=== PATIENT | female | born 1975 | race Caucasian/White ===

== ENCOUNTER 2017-10-15 05:34 | Inpatient (IN) | payer OTHER ==
[~2017-10-15] VITALS: Ht 165.1 cm; Wt 59.4 kg
[2017-10-15] VITALS (7 sets, daily range): BP systolic 91–119; BP diastolic 60–78
[2017-10-15] MEDS ORDERED: NORCO1 E1 ORAL (05:41)
--- NOTE | 2017-10-15 06:03 | Emergency Room Report ---
History of Present Illness General Chief Complaint: Gastrointestinal Bleed Source: Patient Present Illness HPI Is a 42-year-old female who has a history of alcoholism. She is currently in group home for rehabilitation from a severe bursitis of her. She presents with chief complaint of lower GI bleed. She's been having rectal bleeding on and off for a while but more severe in the last day or 2. Large amount of bright red blood per rectum with bowel movement. No trauma. Denies any other complaint. No mass. Allergies: Coded Allergies: No Known Allergies (Unverified , 10/15/17) Patient History Past Medical History: see triage record, old chart reviewed Past Surgical History: other Pertinent Family History: none Social History: Reports: alcohol use - history Now: No Immunizations: other Reviewed Nursing Documentation: PMH: Agreed, PSxH: Agreed Nursing Documentation-PMH Past Medical History: No History, Except For Review of Systems Eye: Denies: eye pain, blurred vision ENT: Denies: ear pain, nose congestion, throat swelling Respiratory: Denies: cough, shortness of breath Cardiovascular: Denies: chest pain, palpitations Gastrointestinal: Denies: abdominal pain, diarrhea, nausea, vomiting Musculoskeletal: Denies: back pain, joint pain Skin: Denies: rash Neurological: Denies: headache, numbness Endocrine: Denies: increased thirst, increased urine Hematologic/Lymphatic: Denies: easy bruising All Other Systems: negative except mentioned in HPI Physical Exam Vital Signs Date Time Temp Pulse Resp B/P (MAP) Pulse Ox O2 Delivery O2 Flow Rate FiO2 10/15/17 05:37 98.2 80 14 84/53 95 Room Air 98.2 vitals with hypotension Sp02 EP Interpretation: reviewed, normal General Appearance: well appearing, no apparent distress, alert Head: normocephalic, atraumatic Eyes: bilateral eye PERRL, bilateral eye EOMI ENT: hearing grossly normal, normal pharynx Neck: full range of motion, supple, no meningismus Respiratory: chest non-tender, lungs clear, normal breath sounds Cardiovascular #1: regular rate, rhythm, no murmur Gastrointestinal: normal bowel sounds, non tender, no mass, no organomegaly, no bruit, non-distended Rectal: normal rectal tone, other - No obvious mass. There is bright red blood Musculoskeletal: back normal, gait/station normal, normal range of motion Psychiatric: mood/affect normal Skin: warm/dry Medical Decision Making Diagnostic Impression: Primary Impression: Rectal bleeding ER Course Patient with rectal bleeding. Most likely an internal hemorrhoid bleeding. I see no external hemorrhoid. Probably worsened because of her thrombocytopenia from alcohol abuse. Will check hemoglobin and give IV fluid. She may need to be admitted for serial H&H and possible colonoscopy. I will sign this patient out to Dr. Burr for labs and final disposition. Last Vital Signs Date Time Temp Pulse Resp B/P (MAP) Pulse Ox O2 Delivery O2 Flow Rate FiO2 10/15/17 05:37 98.2 80 14 84/53 95 Room Air 98.2 Status: improved Disposition: ADMITTED INPATIENT Condition: Serious PARIS DE LA VEGA M.D. Oct 15, 2017 06:02
[2017-10-15 06:17] LABS: HEMOGLOBIN 9.1 G/DL (12.0-16.0); MEAN CORPUSCULAR VOLUME 101 FL (80-99); RED BLOOD COUNT 2.78 M/UL (4.20-5.40); RED CELL DISTRIBUTION WIDTH 17.2 % (11.6-14.8); WHITE BLOOD COUNT 4.8 K/UL (4.8-10.8)
[2017-10-15 06:18] LABS: BILIRUBIN, URINE NEGATIVE (NEGATIVE); GLUCOSE, URINE (UA) NEGATIVE (NEGATIVE); KETONES,URINE NEGATIVE (NEGATIVE); NITRITE,URINE NEGATIVE (NEGATIVE); PH,URINE 7 (4.5-8.0); PROTEIN,URINE 1+ (NEGATIVE); UROBILINOGEN,URINE 1 MG/DL (0.0-1.0)
[2017-10-15 06:18] LABS: PLATELET COUNT 66 K/UL (150-450)
[2017-10-15 06:31] LABS: ANION GAP 7 mmol/L (5-15); BLOOD UREA NITROGEN 6 mg/dL (7-18); CALCIUM 9.6 MG/DL (8.5-10.1); CARBON DIOXIDE 29 MMOL/L (21-32); CHLORIDE 106 MMOL/L (98-107); CREATININE 0.6 MG/DL (0.55-1.30); POTASSIUM 3.5 MMOL/L (3.5-5.1); SODIUM 142 MMOL/L (136-145)
[2017-10-15 06:34] LABS: INR 1.4 (0.9-1.1)
[2017-10-15 06:36] LABS: COLOR,URINE YELLOW
[2017-10-15 06:37] LABS: APPEARANCE,URINE SLIGHTLY CLOUDY; LEUKOCYTE ESTERASE ,URINE 2+ (NEGATIVE)
[2017-10-15] MEDS ORDERED: FERROUS SULFAT325 MG ORAL (07:49)
[2017-10-15] MEDS ORDERED: FOLIC ACID1 MG ORAL (07:49)
[2017-10-15] MEDS ORDERED: MULTIVITAMINS1 EAC2 ORAL (07:49)
[2017-10-15] MEDS ORDERED: ASCORBIC ACID500 MG ORAL (07:49)
[2017-10-15] MEDS ORDERED: NORCO 10-325 T1 EACH ORAL (07:49)
[2017-10-15] MEDS ORDERED: LACTULOSE20 GM/301 ORAL (07:49)
[2017-10-15] MEDS ORDERED: VITAMIN B-1100 MG ORAL (07:49)
[2017-10-15] MEDS ORDERED: PREPARATION H26 GM TP (07:49)
[2017-10-15] MEDS ORDERED: ACETAMINOPHEN325 M1 ORAL (07:49)
[2017-10-15] MEDS ORDERED: SERTRALINE HCL25 MG ORAL (07:49)
[2017-10-15] MEDS ORDERED: DOCUSATE SODIU250 MG ORAL (07:49)
[2017-10-15] MEDS ORDERED: [UNRECOGNIZED DRUG - OTHER] TOPIC (07:49)
[2017-10-15] MEDS ORDERED: BISACODYL5 MG ORAL (07:49)
[2017-10-15] MEDS ORDERED: cefTRIAXone 1 GM in NS 55 ML IVPB ONE (09:30)
[2017-10-15] MEDS ORDERED: HYDROcodone/Acetamin 10/325 tab ORAL PRN (15:00)
[2017-10-15] MEDS ORDERED: Bisacodyl EC 5mg tab ORAL ONE (16:00)
[2017-10-15] MEDS ORDERED: Fleet's Enema 133ml RECTAL ONE (16:00)
[2017-10-15] MEDS ORDERED: Nulytely 4L ORAL ONE (16:30)
[2017-10-15] MEDS: Lactulose 20gm/30ml UDC ORAL SCH (18:05)
[2017-10-15] MEDS: Docusate 250mg cap ORAL SCH (18:05)
[2017-10-15 18:26] LABS: % IRON SATURATION 18 % (15-50); FERRITIN 58 NG/ML (8-388); IRON 36 ug/dL (50-175); LACTATE DEHYDROGENASE 150 U/L (81-234); TOTAL IRON BINDING CAPACITY 205 ug/dL (250-450)
[2017-10-15] MEDS: HYDROcodone/Acetamin 10/325 tab ORAL PRN (18:57)
--- NOTE | 2017-10-15 20:16 | Consultation ---
DATE OF CONSULTATION: 10/15/2017 INFECTIOUS DISEASE CONSULTATION PRIMARY ATTENDING PHYSICIAN: Ernie Giron M.D. REASON FOR CONSULT: Pyuria and UTI. HISTORY OF PRESENT ILLNESS: The patient is a 42-year-old female admitted today [facility] because of lower GI bleeding, passing blood and blood clots from rectum for two days. No fever. No chills. No other symptoms. PAST MEDICAL HISTORY: Significant for alcoholism. The patient's states that couple of mixes. Did not take any alcohol for couple of weeks. Alcoholic liver disease, anemia and thrombocytopenia, has hip bursitis. MEDICATIONS: Getting get a dose of ceftriaxone in the ER and getting sodium chloride. Prior to admission, taking nonsteroidal anti-inflammatory drugs. SOCIAL HISTORY: alf resident. Denies drug abuse. Denies smoking. Until a couple of weeks ago, drank three drinks every other day of vodka. Single, has no child. REVIEW OF SYSTEMS: No fever. No chills. No headache. Some generalized weakness, but no shortness of breath. No chest pain. She has some musculoskeletal pain. No problem passing urine. No coughing. PHYSICAL EXAMINATION: VITAL SIGNS: Temperature 98.4 degrees, pulse 80, and blood pressure 94/65. GENERAL APPEARANCE: No acute distress. HEAD AND NECK: No oral lesion. HEART: Regular. Normal rate. LUNGS: Clear. ABDOMEN: Soft, nondistended. No organomegaly. EXTREMITY: She have no edema. LABORATORY AND DIAGNOSTIC DATA: WBC 4.8, hemoglobin 9.1, hematocrit 28 and platelet 66. Sodium 142, potassium 3.5, chloride 106, bicarbonate 29, BUN 6 and creatinine 0.6. Liver function tests in senior care that showed bilirubin of 2.5. UA showed leukocyte esterase 2+, WBCs 5 to 10, bacteria moderate and coarse granular casts. IMPRESSION: Pyuria. We will try to rule out urinary tract infection. The patient has rectal bleeding, has anemia, thrombocytopenia and alcoholic liver disease. RECOMMENDATION: We will continue ceftriaxone. The patient will be evaluated with GI specialist. At the end of my exam, I thank Dr. Giron for involving me in the care of this patient. Jf Alvarez M.D. DR: CLAUDIA JOB#: [id number] CC:
[2017-10-16] VITALS (11 sets, daily range): BP systolic 90–121; BP diastolic 53–85
[2017-10-16] MEDS: HYDROcodone/Acetamin 10/325 tab ORAL PRN ×5 (00:57→22:22)
--- NOTE | 2017-10-16 05:17 | History and Physical Report ---
DATE OF ADMISSION: 10/15/2017 NOTE: POOR AUDIO HISTORY OF PRESENT ILLNESS: The patient comes here because of rectal bleeding. She is admitted to telemetry for UTI as well as rectal bleeding. The patient has been having bleeding from the rectum and never had colonoscopy in the past. She is here for recheck with workup as well. The patient is having rectal bleeding for the past month, however, for the last two days has been much heavier with clots. The patient also had acute onset of left hip bursitis for which she [facility]. The patient also has history of lupus. Denies nausea, vomiting, or diarrhea. Denies vomiting. Denies constipation. Denies shortness of breath. Denies cough. PAST MEDICAL HISTORY: Significant for lupus, left hip bursitis, constipation in the past, iron-deficiency anemia in the past, and depression in the past. PAST SURGICAL HISTORY: Left wrist surgery. MEDICATIONS: She used to take in the past multivitamin, thiamine, Colace, and folic acid. ALLERGIES: Erythromycin. SOCIAL HISTORY: Denies history of smoking, alcohol, or illicit drugs. FAMILY HISTORY: Noncontributory. REVIEW OF SYSTEMS: HEENT: Denies headaches. RESPIRATORY: Denies shortness of breath. Denies cough. CARDIOVASCULAR: Denies chest pain. No orthopnea. GASTROINTESTINAL: Denies nausea, vomiting, or diarrhea. Does have occasional constipation with rectal bleeding for the past month and has been much worse in the past two days with heavy clots. EXTREMITIES: Denies lower extremity pain. CENTRAL NERVOUS SYSTEM: No change in vision or speech pattern. PHYSICAL EXAMINATION: VITAL SIGNS: Temperature is 98.2 degrees, pulse is 80, and blood pressure 84/73. HEENT: PERRLA. NECK: Supple. No lymphadenopathy. CHEST: Clear to auscultation. GASTROINTESTINAL: Soft, nontender, and nondistended. No organomegaly. EXTREMITIES: No edema. Moves all four extremities. Does have decreased range of motion in the left hip due to bursitis, however, it is getting better and is able to move . Otherwise, edema in the lower extremity. Reflexes equal on both sides. NEUROLOGIC: Cranial nerves II through XII intact. LABORATORY DATA: WBC of 4.81, hemoglobin 9.1, and platelets 66,000. Sodium 140, potassium 3.5, BUN of 6, and creatinine 0.6. ASSESSMENT AND PLAN: 1. Rectal bleeding. 2. Anemia. 3. Hypokalemia. I have asked Dr. Rogers, Dr. Cunningham, and Dr. Melgar as well as Dr. Bustamante for the above-mentioned diagnoses and treatment as well as for the urinary tract infection treatment of the urinary tract infection. Ernie Giron M.D. DR: Amando JOB#: [id number] CC:
[2017-10-16] MEDS ORDERED: Fleet's Enema 133ml RECTAL ONE (06:00)
--- NOTE | 2017-10-16 07:01 | Consultation ---
DATE OF CONSULTATION: 10/15/2017 NOTE: POOR AUDIO HEMATOLOGY/ONCOLOGY CONSULTATION CONSULTING PHYSICIAN: Damien Rogers M.D. REQUESTING PHYSICIAN: Ernie Giron M.D. REASON FOR CONSULTATION: Evaluation of thrombocytopenia and anemia. IDENTIFYING DATA: Dear Dr. Giron, The patient is a pleasant 42-year-old female with past medical history significant for correction resident, severe bursitis, history of alcoholism, and history of rectal bleeding in the past, at this time presents with bright red blood per rectum. No masses noted. Denies any fevers or chills. history of anemia. Hematology Service was consulted as well as GI team. PAST MEDICAL HISTORY: As noted above. PAST SURGICAL HISTORY: None noted. SOCIAL HISTORY: Alcohol abuse drug use. No tobacco. FAMILY HISTORY: Noncontributory. REVIEW OF SYSTEMS: CONSTITUTIONAL: No fevers, chills, or night sweats. SKIN: No rashes, bumps, or itching. HEENT: No headache, hearing or vision changes. BREASTS: No masses noted. GASTROINTESTINAL: No nausea, vomiting, or diarrhea. GENITOURINARY: No dysuria, frequency, or urgency. MUSCULOSKELETAL: No joint swelling, muscle pain, or trauma. PHYSICAL EXAMINATION: VITAL SIGNS: Reviewed. GENERAL: No distress. PULMONARY: Decreased breath sounds. CARDIOVASCULAR: Regular rate. No S3 or S4. ABDOMEN: Soft, nontender, and nondistended. EXTREMITIES: No cyanosis, swelling, or edema. LABORATORY AND DIAGNOSTIC DATA: WBC 4.8, hemoglobin 9.1, hematocrit 28, and platelet count 66,000. INR 1.1. imaging reviewed. No imaging noted. ASSESSMENT AND RECOMMENDATIONS: 1. Thrombocytopenia, likely secondary to history of alcohol abuse, potential cirrhosis and potential splenomegaly. Obtain ultrasound of the abdomen, human immunodeficiency virus, hepatitis. 2. Anemia due to gastrointestinal bleed. GI evaluation by Dr. Cunningham. 3. Macrocytosis, potentially secondary to alcohol abuse. Continue to closely monitor. 4. 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 5. Cirrhosis of the liver. ____ vitamin K . 6. Gastrointestinal bleed. Evaluation by GI Service. EGD and colonoscopy as per GI Service. 7. Alcoholism. Recommend the patient to stop drinking. 8. , likely due to anemia. I appreciate the consultation. Damien Rogers M.D. DR: ATA JOB#: [id number] CC:
[2017-10-16 08:36] LABS: HEMATOCRIT 24.8 % (37.0-47.0); HEMOGLOBIN 7.8 G/DL (12.0-16.0); MEAN CORPUSCULAR VOLUME 101 FL (80-99); PLATELET COUNT 54 K/UL (150-450); RED BLOOD COUNT 2.46 M/UL (4.20-5.40); RED CELL DISTRIBUTION WIDTH 17.4 % (11.6-14.8); WHITE BLOOD COUNT 3.3 K/UL (4.8-10.8)
--- NOTE | 2017-10-16 08:41 | Diagnostic Imaging Report ---
Indication: Abdominal pain Technique: Arias-scale and duplex images of the upper abdomen were obtained Comparison: none Findings: Gallbladder demonstrates gallstones. The wall is thickened. And there is some pericholecystic fluid Sonographic Gale's sign is negative. Common bile duct measures 3 mm in diameter. No intrahepatic biliary ductal dilatation. Liver demonstrates normal echogenicity, no focal abnormality. Portal vein and hepatic veins are patent. Pancreas is unremarkable. Spleen is unremarkable. Left kidney measures 12.1 cm in length. Right kidney measures 13.5 cm length. Both kidneys demonstrate normal echogenicity. There is no hydronephrosis. Calculi are demonstrated in the right renal lower pole, measuring up to 7 mm diameter. Non-aneurysmal abdominal aorta . Impression: Cholelithiasis. Gallbladder wall thickening and pericholecystic fluid is concerning for acute cholecystitis. Consider nuclear medicine hepatobiliary scanning for further evaluation if clinically indicated Negative for dilated ducts Nonobstructive right lower pole renal calculi
--- NOTE | 2017-10-16 08:43 | Anethesia Preoperative Eval ---
Anesthesia Pre-op PMH/ROS General Date of Evaluation: Oct 16, 2017 Time of Evaluation: 08:38 Anesthesiologist: dawit ASA Score: ASA 3 Mallampati Score Class I : Soft palate, uvula, fauces, pillars visible Class II: Soft palate, uvula, fauces visible Class III: Soft palate, base of uvula visible Class IV: Only hard plate visible Mallampati Classification: Class II Surgeon: lucio Diagnosis: gi bleed Surgical Procedure: egd/colonoscopy Anesthesia History: none Social History: smoking - nonsmoker, alcohol use Family History: no anesthesia problems Allergies: Coded Allergies: No Known Allergies (Unverified , 10/15/17) Medications: see eMAR Past Medical History Neurologic/Psychiatric: Reports: depression/anxiety HEENT: Reports: other - epistaxis Anesthesia Pre-op Phys. Exam Physician Exam Last Vital Signs Date Time Temp Pulse Resp B/P (MAP) Pulse Ox O2 Delivery O2 Flow Rate FiO2 10/16/17 06:20 98.2 10/16/17 04:00 82 19 112/85 95 Room Air Constitutional: NAD Neurologic: CN 2-12 intact Cardiovascular: RRR Respiratory: CTA Gastrointestinal: S/NT/ND Airway Exam Mallampati Score: Class II MO: full Neck: supple TMD: 2fb ROM: full Teeth: intact Anesthesia Pre-op A/P Labs Hematology Test 10/15/17 16:55 10/16/17 08:20 Reticulocyte Count 1.6 % (0.0-2.0) White Blood Count 3.3 K/UL (4.8-10.8) L Red Blood Count 2.46 M/UL (4.20-5.40) L Hemoglobin 7.8 G/DL (12.0-16.0) L Hematocrit 24.8 % (37.0-47.0) L Mean Corpuscular Volume 101 FL (80-99) H Mean Corpuscular Hemoglobin 31.8 PG (27.0-31.0) H Mean Corpuscular Hemoglobin Concent 31.5 G/DL (32.0-36.0) L Red Cell Distribution Width 17.4 % (11.6-14.8) H Platelet Count 54 K/UL (150-450) L Mean Platelet Volume 7.7 FL (6.5-10.1) Neutrophils (%) (Auto) % (45.0-75.0) Lymphocytes (%) (Auto) % (20.0-45.0) Monocytes (%) (Auto) % (1.0-10.0) Eosinophils (%) (Auto) % (0.0-3.0) Basophils (%) (Auto) % (0.0-2.0) Neutrophils % (Manual) Pending Lymphocytes % (Manual) Pending Platelet Estimate Pending Platelet Morphology Pending Coagulation Test 10/15/17 16:55 PTT Mixing Study Pending APTT Patient/Control Mix Pending Mix PTT Incubation Time Pending Mix PTT Normal/Saline 1:1 Immediate Pending Thrombin Time Normal Plasma Pending Fibrinogen 215 mg/dL (200-400) Chemistry Test 10/15/17 16:55 Iron Level 36 ug/dL (50-175) L Total Iron Binding Capacity 205 ug/dL (250-450) L Percent Iron Saturation 18 % (15-50) Unsaturated Iron Binding 169 ug/dL (112-346) Soluble Transferrin Receptor Pending Ferritin 58 NG/ML (8-388) Lactate Dehydrogenase 150 U/L (81-234) Methylmalonic Acid Pending Folate 17.4 NG/ML (8.6-58.9) Thyroid Stimulating Hormone (TSH) 2.525 uiU/mL (0.358-3.740) Risk Assessment & Plan Assessment: asa3 Plan: mac Status Change Before Surgery: No Pre-Antibiotics Drug: WILBERT Harrington Oct 16, 2017 08:43
[2017-10-16] MEDS ORDERED: DiphenhydrAMINE 50mg/ml Inj IVP PRN (09:15)
[2017-10-16] MEDS ORDERED: fentaNYL 100 mcg/2 mL IV PRN (09:15)
[2017-10-16] MEDS ORDERED: Midazolam 2mg/2ml Inj IVP PRN (09:15)
[2017-10-16] MEDS ORDERED: Atropine Inj 1mg/10ml Syr IV PRN (09:15)
[2017-10-16] MEDS ORDERED: Midazolam 2mg/2ml Inj ONE (10:00)
[2017-10-16] MEDS ORDERED: fentaNYL 100 mcg/2 mL IV ONE (10:00)
--- NOTE | 2017-10-16 10:02 | Pre-Procedure Note/Attestation ---
Pre-Procedure Note/Attestation Complete Prior to Procedure Planned Procedure: not applicable Procedure Narrative: Endoscopy and colonoscopy possible banding Attestation I attest that I discussed the nature of the procedure; its benefits; risks and complications; and alternatives (and the risks and benefits of such alternatives ), prior to the procedure, with the patient (or the patient's legal hvac sales representative). I attest that, if there was a reasonable possibility of needing a blood transfusion, the patient (or the patient's legal hvac sales representative) was given the [facility] standardized written summary, pursuant to the Yadiel Daniel Blood Safety Act ([place] Health and Safety Code # 1645, as amended). I attest that I re-evaluated the patient just prior to the surgery and that there has been no change in the patient's H&P, except as documented below: YVETTE MO Oct 16, 2017 10:02
--- NOTE | 2017-10-16 10:02 | General Progress Note ---
Assessment/Plan Assessment/Plan Dictated Subjective Allergies: Coded Allergies: No Known Allergies (Unverified , 10/15/17) Objective Last 24 Hour Vital Signs Date Time Temp Pulse Resp B/P (MAP) Pulse Ox O2 Delivery O2 Flow Rate FiO2 10/16/17 06:20 98.2 10/16/17 04:00 97.7 82 19 112/85 95 Room Air 97.7 10/16/17 04:00 80 10/16/17 00:00 98.2 76 18 109/56 96 Room Air 98.2 10/16/17 00:00 82 10/15/17 20:00 98.2 74 18 119/78 99 Room Air 98.2 10/15/17 20:00 79 10/15/17 16:00 66 10/15/17 16:00 97.9 74 18 102/68 100 Room Air 97.9 10/15/17 12:00 100 10/15/17 12:00 97.9 101 18 97/68 100 Room Air 97.9 10/15/17 11:19 98.4 80 16 94/65 100 Room Air 10/15/17 11:15 77 17 94/65 96 Room Air 78 Intake and Output 10/15/17 10/16/17 19:00 07:00 Intake Total 2175 ml Output Total 800 ml Balance 2175 ml -800 ml Intake Oral 120 ml IV Total 2055 ml Output Urine Total 800 ml # Voids 3 # Bowel Movements 6 Laboratory Tests 10/15/17 16:55: Reticulocyte Count 1.6, PTT Mixing Study [Pending], APTT Patient/Control Mix [ Pending], Mix PTT Incubation Time [Pending], Mix PTT Normal/Saline 1:1 Immediate [Pending], Thrombin Time Normal Plasma [Pending], Fibrinogen 215, Iron Level 36L, Total Iron Binding Capacity 205L, Percent Iron Saturation 18, Unsaturated Iron Binding 169, Soluble Transferrin Receptor [Pending], Ferritin 58, Lactate Dehydrogenase 150, Methylmalonic Acid [Pending], Folate 17.4, Thyroid Stimulating Hormone (TSH) 2.525, Hepatitis A IgM Antibody [Pending], Hepatitis B Surface Antigen [Pending], Hepatitis B Core IgM Antibody [Pending], Hepatitis C Antibody [Pending], HIV (1&2) Antibody Rapid Negative 10/15/17 17:34: Stool Occult Blood [Pending] 10/16/17 08:20: White Blood Count 3.3L, Red Blood Count 2.46L, Hemoglobin 7.8L, Hematocrit 24.8L , Mean Corpuscular Volume 101H, Mean Corpuscular Hemoglobin 31.8H, Mean Corpuscular Hemoglobin Concent 31.5L, Red Cell Distribution Width 17.4H, Platelet Count 54L, Mean Platelet Volume 7.7, Neutrophils (%) (Auto) , Lymphocytes (%) (Auto) , Monocytes (%) (Auto) , Eosinophils (%) (Auto) , Basophils (%) (Auto) , Neutrophils % (Manual) [Pending], Lymphocytes % (Manual) [Pending], Platelet Estimate [Pending], Platelet Morphology [Pending] Height (Feet): 5 Height (Inches): 5.00 Weight (Pounds): 131 ROCKYVETTE SHAH Oct 16, 2017 10:02
[2017-10-16] MEDS ORDERED: NS 500ML IV ONE (10:10)
--- NOTE | 2017-10-16 11:03 | Endoscopy Procedure Note ---
Endoscopy Procedure Note General Indication for Procedure: GIB Procedures Performed: EGD, colonoscopy Operative Findings/Diagnosis: HHx9, GERD/ulcer, Rhoid, normal TI x 10, no blood Specimen: none Pt Tolerated Procedure Well: Yes Estimated Blood Loss: none Anesthesia Anesthesiologist: Daquan Toro Anesthesia: MAC Medications Medication Given: see anesthesia record Inserted Devices Implant(s) used?: No Quality Quality of Bowel Preparation: Excellent GI Core Measures 50 yrs or older w/o bx or poly: Not Applicable 10yrs. F/U not recommended: Not Applicable If not recommended, why?: YVETTE MO Oct 16, 2017 11:03
--- NOTE | 2017-10-16 11:08 | Brief Operative Note ---
Immediate Post Operative Note Operative Note Chief Complaint: GIB Pre-op Diagnosis: Gib Procedure: EGD/Colon Post-op Diagnosis: HHx9, GERD/ulcer, Rhoid, normal TI x 10, no blood Surgeon: lucio Anesthesiologist: katlin christensen Anesthesia: MAC Specimen: none Complications: none Condition: stable Fluids: recorded Estimated Blood Loss: none Drains: none Implant(s) used?: No YVETTE MO Oct 16, 2017 11:08
--- NOTE | 2017-10-16 11:22 | Immediate Post-Op Evaluation ---
Immediate Post-Op Evalulation Immediate Post-Op Evalulation Procedure: egd/colonoscopy Date of Evaluation: Oct 16, 2017 Time of Evaluation: 11:06 IV Fluids: 325ml 0.9ns Blood Products: none Estimated Blood Loss: negligible Blood Pressure Systolic: 94 Blood Pressure Diastolic: 61 Pulse Rate: 71 Respiratory Rate: 18 O2 Sat by Pulse Oximetry: 100 Temperature (Fahrenheit): 97.5 Pain Score (1-10): 0 Nausea: No Vomiting: No Complications none Patient Status: awake, reacts, patent Hydration Status: adequate Drug: WILBERT Harrington Oct 16, 2017 11:22
--- NOTE | 2017-10-16 11:23 | 48 Hour Post Anesthesia Eval ---
Post Anesthesia Evaluation Procedure: egd/colonoscopy Date of Evaluation: Oct 16, 2017 Time of Evaluation: 11:08 Blood Pressure Systolic: 98 0: 58 Pulse Rate: 82 Respiratory Rate: 18 Temperature (Fahrenheit): 97.5 O2 Sat by Pulse Oximetry: 100 Airway: patent Nausea: No Vomiting: No Hydration Status: adequate Cardiopulmonary Status: stable Mental Status/LOC: patient returned to baseline Post-Anesthesia Complications: none Follow-up care needed: N/A WILBERT GUZMAN Oct 16, 2017 11:23
[2017-10-16] MEDS ORDERED: Phytonadione 10 mg/mL 1ml amp SUBQ ONE (12:00)
[2017-10-16] MEDS: cefTRIAXone 1 GM in NS 55 ML IVPB SCH (12:01)
[2017-10-16] MEDS: Lactulose 20gm/30ml UDC ORAL SCH ×3 (12:02→17:15)
[2017-10-16] MEDS: Docusate 250mg cap ORAL SCH ×2 (12:02→17:15)
[2017-10-16] MEDS: Bisacodyl EC 5mg tab ORAL SCH (12:03)
[2017-10-16] MEDS: Ascorbic Acid 500mg tab ORAL SCH (12:04)
[2017-10-16] MEDS: Sertraline 50mg tab ORAL SCH (12:04)
[2017-10-16] MEDS: Thiamine 100mg tab ORAL SCH (12:04)
[2017-10-16 12:14] LABS: HEMATOCRIT 24.5 % (37.0-47.0); HEMOGLOBIN 7.7 G/DL (12.0-16.0); MEAN CORPUSCULAR VOLUME 103 FL (80-99); PLATELET COUNT 49 K/UL (150-450); RED BLOOD COUNT 2.39 M/UL (4.20-5.40); RED CELL DISTRIBUTION WIDTH 17.4 % (11.6-14.8); WHITE BLOOD COUNT 2.8 K/UL (4.8-10.8)
[2017-10-16 12:23] LABS: ANION GAP 8 mmol/L (5-15); BLOOD UREA NITROGEN 6 mg/dL (7-18); CALCIUM 8.6 MG/DL (8.5-10.1); CARBON DIOXIDE 23 MMOL/L (21-32); CHLORIDE 113 MMOL/L (98-107); CREATININE 0.5 MG/DL (0.55-1.30); POTASSIUM 3.4 MMOL/L (3.5-5.1); SODIUM 144 MMOL/L (136-145)
[2017-10-16 12:33] LABS: ALANINE AMINOTRANSFERASE 14 U/L (12-78); ALBUMIN 2.1 G/DL (3.4-5.0); ALBUMIN/GLOBULIN RATIO 0.6 (1.0-2.7); ALKALINE PHOSPHATASE 120 U/L (46-116); ASPARTATE AMINO TRANSFERASE 42 U/L (15-37); BILIRUBIN,TOTAL 2.7 MG/DL (0.2-1.0)
[2017-10-16 12:36] LABS: BILIRUBIN,DIRECT 1.5 MG/DL (0.0-0.3)
--- NOTE | 2017-10-16 13:16 | Consultation ---
History of Present Illness General Date patient seen: Oct 16, 2017 Chief Complaint: Gastrointestinal Bleed Reason for Consultation: GI bleed Present Illness HPI 42 year old female with multiple medical comorbidities presented with bright red blood and blood clots per rectum. Was noted to have few BM's with bloody contents and was brought to [facility] [place] for evaluation. Upon admission noted to be anemic but fortunately no active bleeding on admission. Patient states that she has episodes of blood with BM's intermittently for the past few months but has not seen medical attention for it as it resolves on its own. no n/v/f/c. Surgery called to evaluate patient for GI bleeding. chart reviewed, patient examined, orders reviewed. Allergies: Coded Allergies: No Known Allergies (Unverified , 10/15/17) Medication History Scheduled Acetaminophen* (Acetaminophen 325MG Tablet*), 325 MG ORAL Q4H, (Reported) Ascorbic Acid* (Ascorbic Acid*), 500 MG ORAL DAILY, (Reported) Bisacodyl* (Dulcolax*), 5 MG ORAL DAILY, (Reported) Docusate Sodium* (Docusate Sodium*), 250 MG ORAL TWICE A DAY, (Reported) Ferrous Sulfate* (Ferrous Sulfate*), 325 MG ORAL DAILY, (Reported) Folic Acid* (Folic Acid*), 1 MG ORAL DAILY, (Reported) Multivitamins* (Multivitamins*), 1 TAB ORAL DAILY, (Reported) Sertraline Hcl* (Sertraline Hcl*), 25 MG ORAL DAILY, (Reported) Thiamine Hcl* (Vitamin B-1*), 100 MG ORAL DAILY, (Reported) Scheduled PRN Acetaminophen/Hydrocodone ([place] 7.5-325 Tablet), 1 TAB ORAL Q4H PRN for For Pain, (Reported) Hydrocodone Bit/Acetaminophen 10-325* ([place] 10-325*), 1 TAB ORAL Q4H PRN for For Pain, (Reported) Miscellaneous Medications Hydrocortisone (Preparation H), 26 GM TP, (Reported) Lactulose (Lactulose*), 30 ML ORAL, (Reported) Lidocaine HCl (Lidocaine HCl), 1 APPLIC TOPIC, (Reported) Patient History History Provided By: Patient, Medical Record, PMD Healthcare decision maker Resuscitation status Full Code Advanced Directive on File Past Medical/Surgical History Past Medical/Surgical History: (1) Rectal bleeding Review of Systems Constitutional: Denies: no symptoms, see HPI, chills, sweats, fever, malaise, weakness, other Eye: Denies: no symptoms, see HPI, eye pain, blurred vision, tearing, double vision, nose pain, nose congestion, acuity changes, discharge, other ENT: Denies: no symptoms, see HPI, ear pain, ear discharge, nose pain, nose congestion, throat pain, throat swelling, mouth pain, hearing loss, nasal discharge, other Respiratory: Denies: no symptoms, see HPI, cough, orthopnea, shortness of breath, stridor, wheezing, BRAY, sputum, other Cardiovascular: Denies: no symptoms, see HPI, chest pain, edema, palpitations, syncope, PND, other Gastrointestinal: Denies: no symptoms, see HPI, abdominal pain, constipation, diarrhea, nausea, vomiting, melena, hematemesis, other Genitourinary: Denies: no symptoms, see HPI, discharge, dysuria, frequency, hematuria, pain, retention, incontinence, urgency, vag bleed/dc, other Musculoskeletal: Denies: no symptoms, see HPI, back pain, gout, joint pain, joint swelling, muscle pain, muscle stiffness, other Skin: Denies: no symptoms, see HPI, rash, change in color, change in hair/nails , dryness, lesions, other Psychiatric: Denies: no symptoms, see HPI, prior hx, anxiety, depressed feelings, emotional problems, SI, HI, hallucinations, other Neurological: Denies: no symptoms, see HPI, headache, numbness, paresthesia, seizure, tingling, tremors, focal weakness, syncope, dizziness, other Endocrine: Denies: no symptoms, see HPI, excessive sweating, flushing, intolerance to temperature, increased thirst, increased urine, unexplained weight loss, other Hematologic/Lymphatic: Denies: no symptoms, see HPI, anemia, blood clots, easy bleeding, easy bruising, swollen glands, diathesis, other Physical Exam General Appearance: no apparent distress, alert Lines, tubes and drains: peripheral HEENT: normocephalic, mucous membranes moist Neck: normal inspection Respiratory/Chest: lungs clear, normal breath sounds, no respiratory distress, no accessory muscle use Cardiovascular/Chest: normal peripheral pulses, normal rate Abdomen: normal bowel sounds, soft, no organomegaly, no mass Genitourinary/Rectal: other - just had colonoscopy. defer rectal exam for now Extremities: non-tender Neurologic: alert, responsive Last 24 Hour Vital Signs Date Time Temp Pulse Resp B/P (MAP) Pulse Ox O2 Delivery O2 Flow Rate FiO2 10/16/17 11:35 79 17 101/59 100 Room Air 10/16/17 11:23 207.5 82 18 100 10/16/17 11:22 207.5 71 18 100 10/16/17 11:20 97.9 83 15 99/53 100 Room Air 97.9 10/16/17 11:05 82 16 95/58 100 Room Air 10/16/17 11:00 80 14 90/55 100 Room Air 10/16/17 10:54 97.5 71 18 94/61 100 Nasal Cannula 1.0 97.5 10/16/17 08:00 98.6 72 18 102/55 97 Room Air 98.6 10/16/17 06:20 98.2 10/16/17 04:00 97.7 82 19 112/85 95 Room Air 97.7 10/16/17 04:00 80 10/16/17 00:00 98.2 76 18 109/56 96 Room Air 98.2 10/16/17 00:00 82 10/15/17 20:00 98.2 74 18 119/78 99 Room Air 98.2 10/15/17 20:00 79 10/15/17 16:00 66 10/15/17 16:00 97.9 74 18 102/68 100 Room Air 97.9 Intake and Output 10/15/17 10/16/17 19:00 07:00 Intake Total 2175 ml Output Total 800 ml Balance 2175 ml -800 ml Intake Oral 120 ml IV Total 2055 ml Output Urine Total 800 ml # Voids 3 # Bowel Movements 6 Laboratory Tests Test 10/15/17 16:55 10/15/17 17:34 10/16/17 08:20 10/16/17 11:45 Reticulocyte Count 1.6 % (0.0-2.0) PTT Mixing Study Pending APTT Patient/Control Mix Pending Mix PTT Incubation Time Pending Mix PTT Normal/Saline 1:1 Immediate Pending Thrombin Time Normal Plasma Pending Fibrinogen 215 mg/dL (200-400) Iron Level 36 ug/dL (50-175) L Total Iron Binding Capacity 205 ug/dL (250-450) L Percent Iron Saturation 18 % (15-50) Unsaturated Iron Binding 169 ug/dL (112-346) Soluble Transferrin Receptor Pending Ferritin 58 NG/ML (8-388) Lactate Dehydrogenase 150 U/L (81-234) Methylmalonic Acid Pending Folate 17.4 NG/ML (8.6-58.9) Thyroid Stimulating Hormone (TSH) 2.525 uiU/mL (0.358-3.740) Hepatitis A IgM Antibody Negative (Negative) Hepatitis B Surface Antigen Negative (Negative) Hepatitis B Core IgM Antibody Negative (Negative) Hepatitis C Antibody 0.1 s/co ratio (0.0-0.9) HIV (1&2) Antibody Rapid Negative (NEGATIVE) Stool Occult Blood Positive (NEGATIVE) White Blood Count 3.3 K/UL (4.8-10.8) L 2.8 K/UL (4.8-10.8) L Red Blood Count 2.46 M/UL (4.20-5.40) L 2.39 M/UL (4.20-5.40) L Hemoglobin 7.8 G/DL (12.0-16.0) L 7.7 G/DL (12.0-16.0) L Hematocrit 24.8 % (37.0-47.0) L 24.5 % (37.0-47.0) L Mean Corpuscular Volume 101 FL (80-99) H 103 FL (80-99) H Mean Corpuscular Hemoglobin 31.8 PG (27.0-31.0) H 32.2 PG (27.0-31.0) H Mean Corpuscular Hemoglobin Concent 31.5 G/DL (32.0-36.0) L 31.4 G/DL (32.0-36.0) L Red Cell Distribution Width 17.4 % (11.6-14.8) H 17.4 % (11.6-14.8) H Platelet Count 54 K/UL (150-450) L 49 K/UL (150-450) L Mean Platelet Volume 7.7 FL (6.5-10.1) 8.3 FL (6.5-10.1) Neutrophils (%) (Auto) % (45.0-75.0) % (45.0-75.0) Lymphocytes (%) (Auto) % (20.0-45.0) % (20.0-45.0) Monocytes (%) (Auto) % (1.0-10.0) % (1.0-10.0) Eosinophils (%) (Auto) % (0.0-3.0) % (0.0-3.0) Basophils (%) (Auto) % (0.0-2.0) % (0.0-2.0) Differential Total Cells Counted 100 Neutrophils % (Manual) 56 % (45-75) Pending Lymphocytes % (Manual) 33 % (20-45) Pending Monocytes % (Manual) 9 % (1-10) Eosinophils % (Manual) 2 % (0-3) Basophils % (Manual) 0 % (0-2) Band Neutrophils 0 % (0-8) Platelet Estimate Decreased L Pending Platelet Morphology Normal Pending Hypochromasia 1+ Anisocytosis 1+ Macrocytosis 1+ Sodium Level 144 MMOL/L (136-145) Potassium Level 3.4 MMOL/L (3.5-5.1) L Chloride Level 113 MMOL/L (98-107) H Carbon Dioxide Level 23 MMOL/L (21-32) Anion Gap 8 mmol/L (5-15) Blood Urea Nitrogen 6 mg/dL (7-18) L Creatinine 0.5 MG/DL (0.55-1.30) L Estimat Glomerular Filtration Rate > 60 mL/min (>60) Glucose Level 79 MG/DL (74-106) Calcium Level 8.6 MG/DL (8.5-10.1) Total Bilirubin 2.7 MG/DL (0.2-1.0) H Direct Bilirubin 1.5 MG/DL (0.0-0.3) H Aspartate Amino Transf (AST/SGOT) 42 U/L (15-37) H Alanine Aminotransferase (ALT/SGPT) 14 U/L (12-78) Alkaline Phosphatase 120 U/L (46-116) H Ammonia 64 umol/L (11-32) H Total Protein 5.7 G/DL (6.4-8.2) L Albumin 2.1 G/DL (3.4-5.0) L Globulin 3.6 g/dL Albumin/Globulin Ratio 0.6 (1.0-2.7) L Height (Feet): 5 Height (Inches): 5.00 Weight (Pounds): 131 Medications Current Medications Medications (Trade) Dose Ordered Sig/Zandra Route PRN Reason Start Time Stop Time Status Last Admin Dose Admin Acetaminophen (Tylenol) 325 mg Q4H PRN ORAL Fever/Headache/Mild Pain 10/15/17 19:00 11/14/17 18:59 Acetaminophen/ Hydrocodone Bitart ([place] 10/325) 1 tab Q4H PRN ORAL MOD-SEVERE PAIN 10/15/17 15:15 10/22/17 14:59 10/16/17 05:21 Al Hydroxide/Mg Hydroxide (Mylanta) 15 ml Q1H PRN ORAL gi upset 10/16/17 09:15 10/16/17 17:00 Ascorbic Acid (Vitamin C) 500 mg DAILY ORAL 10/16/17 09:00 11/15/17 08:59 10/16/17 12:04 Atropine Sulfate (Atropine) 0.5 mg Q5M PRN IV bpm less than 45 10/16/17 09:15 10/16/17 17:00 Bisacodyl (Dulcolax) 5 mg DAILY ORAL 10/16/17 09:00 11/15/17 08:59 10/16/17 12:03 Ceftriaxone Sodium 1 gm/ Sodium Chloride 55 ml @ 110 mls/hr Q24H IVPB 10/16/17 09:00 10/23/17 08:59 10/16/17 12:01 Diphenhydramine HCl (Benadryl) 25 mg Q15M PRN IVP Itching 10/16/17 09:15 10/16/17 17:00 Docusate Sodium (Colace) 250 mg TWICE A DAY ORAL 10/15/17 18:00 11/14/17 17:59 10/16/17 12:02 Fentanyl Citrate (Sublimaze 100 mcg/2 mL) 25 mcg Q10M PRN IV Moderate Pain (Pain Scale 4-6) 10/16/17 09:15 10/16/17 17:00 Folic Acid (Folate) 1 mg DAILY ORAL 10/16/17 09:00 11/15/17 08:59 10/16/17 12:04 Hydralazine HCl (Apresoline) 5 mg Q30M PRN IV SBP>160 OR___/DBP>90 OR___ 10/16/17 09:15 10/16/17 17:00 Lactulose (Cephulac) 20 gm TID ORAL 10/15/17 18:00 11/14/17 17:59 10/16/17 12:02 Midazolam HCl (Versed 2mg/2ml vial) 1 mg Q15M PRN IVP For Anxiety 10/16/17 09:15 10/16/17 17:00 Multivitamins (Multivitamins) 1 tab DAILY ORAL 10/16/17 09:00 11/15/17 08:59 10/16/17 12:03 Ondansetron HCl (Zofran) 4 mg Q1H PRN IVP Nausea & Vomiting 10/16/17 09:15 10/16/17 17:00 Pantoprazole (Protonix) 40 mg BIAC ORAL 10/16/17 11:30 11/15/17 11:29 Sertraline HCl (Zoloft) 25 mg DAILY ORAL 10/16/17 09:00 11/15/17 08:59 10/16/17 12:04 Thiamine HCl (Vitamin B1) 100 mg DAILY ORAL 10/16/17 09:00 11/15/17 08:59 10/16/17 12:04 Assessment/Plan Problem List: (1) Rectal bleeding Assessment & Plan: Had Colonoscopy and EGD this AM. found to have hemorrhoids that were friable. no lesions seen or significant blood in colon. upper GI with GERD ulcers and hernia. no acute surgical intervention necessary. patient currently not bleeding and stable. will monitor for now. can consider hemorrhoidectomy as outpatient. if rebleeding significant while in hospital can consider but unlikely. transfuse prn. ppi. medical management of gerd. trend labs. will monitor and follow with recs. thank you for this consultation. ICD Codes: K62.5 - Hemorrhage of anus and rectum SNOMED: 68157479 Status: stable Jc Arrington Oct 16, 2017 13:16
[2017-10-16] MEDS ORDERED: Potassium Chloride 40 MEQ in Sodium Chloride 500ML 550 ML IVPB ONE (18:00)
--- NOTE | 2017-10-16 19:59 | General Progress Note ---
Assessment/Plan Problem List: (1) Rectal bleeding ICD Codes: K62.5 - Hemorrhage of anus and rectum SNOMED: 23903555 Status: progressing Assessment/Plan anemia treatment per heme/onc rectal bleed s/p endoscopy found to have hemorrhoid and gerd ulcer and large hiatel hernia Subjective Gastrointestinal/Abdominal: Reports: blood in stool Allergies: Coded Allergies: No Known Allergies (Unverified , 10/15/17) Subjective rectal bleed Objective Last 24 Hour Vital Signs Date Time Temp Pulse Resp B/P (MAP) Pulse Ox O2 Delivery O2 Flow Rate FiO2 10/16/17 16:00 68 10/16/17 16:00 97.7 80 22 108/63 96 2.0 97.7 10/16/17 12:00 68 10/16/17 12:00 97.2 64 20 121/65 100 Room Air 97.2 10/16/17 11:35 79 17 101/59 100 Room Air 10/16/17 11:23 207.5 82 18 100 10/16/17 11:22 207.5 71 18 100 10/16/17 11:20 97.9 83 15 99/53 100 Room Air 97.9 10/16/17 11:05 82 16 95/58 100 Room Air 10/16/17 11:00 80 14 90/55 100 Room Air 10/16/17 10:54 97.5 71 18 94/61 100 Nasal Cannula 1.0 97.5 10/16/17 08:00 98.6 72 18 102/55 97 Room Air 98.6 10/16/17 08:00 77 10/16/17 06:20 98.2 10/16/17 04:00 97.7 82 19 112/85 95 Room Air 97.7 10/16/17 04:00 80 10/16/17 00:00 98.2 76 18 109/56 96 Room Air 98.2 10/16/17 00:00 82 10/15/17 20:00 98.2 74 18 119/78 99 Room Air 98.2 10/15/17 20:00 79 Intake and Output 10/15/17 10/16/17 19:00 07:00 Intake Total 2175 ml Output Total 800 ml Balance 2175 ml -800 ml Intake Oral 120 ml IV Total 2055 ml Output Urine Total 800 ml # Voids 3 # Bowel Movements 6 Laboratory Tests 10/16/17 08:20: White Blood Count 3.3L, Red Blood Count 2.46L, Hemoglobin 7.8L, Hematocrit 24.8L , Mean Corpuscular Volume 101H, Mean Corpuscular Hemoglobin 31.8H, Mean Corpuscular Hemoglobin Concent 31.5L, Red Cell Distribution Width 17.4H, Platelet Count 54L, Mean Platelet Volume 7.7, Neutrophils (%) (Auto) , Lymphocytes (%) (Auto) , Monocytes (%) (Auto) , Eosinophils (%) (Auto) , Basophils (%) (Auto) , Differential Total Cells Counted 100, Neutrophils % ( Manual) 56, Lymphocytes % (Manual) 33, Monocytes % (Manual) 9, Eosinophils % ( Manual) 2, Basophils % (Manual) 0, Band Neutrophils 0, Platelet Estimate DecreasedL, Platelet Morphology Normal, Hypochromasia 1+, Anisocytosis 1+, Macrocytosis 1+ 10/16/17 11:45: White Blood Count 2.8L, Red Blood Count 2.39L, Hemoglobin 7.7L, Hematocrit 24.5L , Mean Corpuscular Volume 103H, Mean Corpuscular Hemoglobin 32.2H, Mean Corpuscular Hemoglobin Concent 31.4L, Red Cell Distribution Width 17.4H, Platelet Count 49L, Mean Platelet Volume 8.3, Neutrophils (%) (Auto) , Lymphocytes (%) (Auto) , Monocytes (%) (Auto) , Eosinophils (%) (Auto) , Basophils (%) (Auto) , Differential Total Cells Counted 100, Neutrophils % ( Manual) 61, Lymphocytes % (Manual) 29, Monocytes % (Manual) 10, Eosinophils % ( Manual) 0, Basophils % (Manual) 0, Band Neutrophils 0, Platelet Estimate DecreasedL, Platelet Morphology Normal, Hypochromasia 1+, Anisocytosis 1+, Macrocytosis 1+, Sodium Level 144, Potassium Level 3.4L, Chloride Level 113H, Carbon Dioxide Level 23, Anion Gap 8, Blood Urea Nitrogen 6L, Creatinine 0.5L, Estimat Glomerular Filtration Rate > 60, Glucose Level 79, Calcium Level 8.6, Total Bilirubin 2.7H, Direct Bilirubin 1.5H, Aspartate Amino Transf (AST/SGOT) 42H, Alanine Aminotransferase (ALT/SGPT) 14, Alkaline Phosphatase 120H, Ammonia 64H, Total Protein 5.7L, Albumin 2.1L, Globulin 3.6, Albumin/Globulin Ratio 0.6L Height (Feet): 5 Height (Inches): 5.00 Weight (Pounds): 131 Cardiovascular: normal rate Respiratory/Chest: lungs clear Abdomen: soft Ernie Giron MD Oct 16, 2017 19:59
[2017-10-17] VITALS (7 sets, daily range): BP systolic 87–110; BP diastolic 46–72
--- NOTE | 2017-10-17 00:12 | General Progress Note ---
Assessment/Plan Assessment/Plan 1. Pancytopenia, likely secondary to history of alcohol abuse, potential cirrhosis and potential splenomegaly. --> Obtain ultrasound of the abdomen, human immunodeficiency virus, hepatitis. --> Abd us results: Cholelithiasis. Gallbladder wall thickening and pericholecystic fluid is concerning for acute cholecystitis. --> HIV and Hep panel were both negative. --> Transfuse if hgb <7 or plt <20 2. Anemia due to gastrointestinal bleed. GI evaluation by Dr. Cunningham. --> ++Occult blood --> monitor closely. 3. Macrocytosis, potentially secondary to alcohol abuse. Continue to closely monitor. 4. 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 --> Recommend cessation 5. Cirrhosis of the liver. 6. Gastrointestinal bleed. --> Evaluation by GI Service. EGD and colonoscopy as per GI Service. 7. Alcoholism. Again, recommend the patient to stop drinking. Subjective Date patient seen: Oct 16, 2017 Constitutional: Denies: no symptoms, chills, diaphoresis, fever, malaise, weakness, other HEENT: Denies: no symptoms, eye pain, blurred vision, tearing, double vision, ear pain, ear discharge, nose pain, nose congestion, throat pain, throat swelling, mouth pain, mouth swelling, other Cardiovascular: Denies: no symptoms, chest pain, edema, irregular heart rate, lightheadedness, palpitations, syncope, other Respiratory: Denies: no symptoms, cough, orthopnea, shortness of breath, SOB with excertion, SOB at rest, sputum, stridor, wheezing, other Gastrointestinal/Abdominal: Denies: no symptoms, abdomen distended, abdominal pain, black stools, tarry stools, blood in stool, constipated, diarrhea, difficulty swallowing, nausea, poor appetite, poor fluid intake, rectal bleeding , vomiting, other Genitourinary: Denies: no symptoms, burning, discharge, frequency, flank pain, hematuria, incontinence, pain, urgency, other Neurologic/Psychiatric: Denies: no symptoms, anxiety, depressed, emotional problems, headache, numbness, paresthesia, pre-existing deficit, seizure, tingling, tremors, weakness, other Hematologic/Lymphatic: Reports: anemia Allergies: Coded Allergies: No Known Allergies (Unverified , 10/15/17) Subjective GI bleed detected. Confused. No fever. Objective Last 24 Hour Vital Signs Date Time Temp Pulse Resp B/P (MAP) Pulse Ox O2 Delivery O2 Flow Rate FiO2 10/16/17 20:00 97.9 85 20 104/74 98 Nasal Cannula 2.0 97.9 10/16/17 20:00 81 10/16/17 16:00 68 10/16/17 16:00 97.7 80 22 108/63 96 2.0 97.7 10/16/17 12:00 68 10/16/17 12:00 97.2 64 20 121/65 100 Room Air 97.2 10/16/17 11:35 79 17 101/59 100 Room Air 10/16/17 11:23 207.5 82 18 100 10/16/17 11:22 207.5 71 18 100 10/16/17 11:20 97.9 83 15 99/53 100 Room Air 97.9 10/16/17 11:05 82 16 95/58 100 Room Air 10/16/17 11:00 80 14 90/55 100 Room Air 10/16/17 10:54 97.5 71 18 94/61 100 Nasal Cannula 1.0 97.5 10/16/17 08:00 98.6 72 18 102/55 97 Room Air 98.6 10/16/17 08:00 77 10/16/17 06:20 98.2 10/16/17 04:00 97.7 82 19 112/85 95 Room Air 97.7 10/16/17 04:00 80 Intake and Output 10/16/17 10/17/17 19:00 07:00 Intake Total 710 ml Output Total 650 ml Balance 60 ml Intake Oral 600 ml IV Total 110 ml Output Urine Total 650 ml # Bowel Movements 1 Laboratory Tests 10/16/17 08:20: White Blood Count 3.3L, Red Blood Count 2.46L, Hemoglobin 7.8L, Hematocrit 24.8L , Mean Corpuscular Volume 101H, Mean Corpuscular Hemoglobin 31.8H, Mean Corpuscular Hemoglobin Concent 31.5L, Red Cell Distribution Width 17.4H, Platelet Count 54L, Mean Platelet Volume 7.7, Neutrophils (%) (Auto) , Lymphocytes (%) (Auto) , Monocytes (%) (Auto) , Eosinophils (%) (Auto) , Basophils (%) (Auto) , Differential Total Cells Counted 100, Neutrophils % ( Manual) 56, Lymphocytes % (Manual) 33, Monocytes % (Manual) 9, Eosinophils % ( Manual) 2, Basophils % (Manual) 0, Band Neutrophils 0, Platelet Estimate DecreasedL, Platelet Morphology Normal, Hypochromasia 1+, Anisocytosis 1+, Macrocytosis 1+ 10/16/17 11:45: White Blood Count 2.8L, Red Blood Count 2.39L, Hemoglobin 7.7L, Hematocrit 24.5L , Mean Corpuscular Volume 103H, Mean Corpuscular Hemoglobin 32.2H, Mean Corpuscular Hemoglobin Concent 31.4L, Red Cell Distribution Width 17.4H, Platelet Count 49L, Mean Platelet Volume 8.3, Neutrophils (%) (Auto) , Lymphocytes (%) (Auto) , Monocytes (%) (Auto) , Eosinophils (%) (Auto) , Basophils (%) (Auto) , Differential Total Cells Counted 100, Neutrophils % ( Manual) 61, Lymphocytes % (Manual) 29, Monocytes % (Manual) 10, Eosinophils % ( Manual) 0, Basophils % (Manual) 0, Band Neutrophils 0, Platelet Estimate DecreasedL, Platelet Morphology Normal, Hypochromasia 1+, Anisocytosis 1+, Macrocytosis 1+, Sodium Level 144, Potassium Level 3.4L, Chloride Level 113H, Carbon Dioxide Level 23, Anion Gap 8, Blood Urea Nitrogen 6L, Creatinine 0.5L, Estimat Glomerular Filtration Rate > 60, Glucose Level 79, Calcium Level 8.6, Total Bilirubin 2.7H, Direct Bilirubin 1.5H, Aspartate Amino Transf (AST/SGOT) 42H, Alanine Aminotransferase (ALT/SGPT) 14, Alkaline Phosphatase 120H, Ammonia 64H, Total Protein 5.7L, Albumin 2.1L, Globulin 3.6, Albumin/Globulin Ratio 0.6L Height (Feet): 5 Height (Inches): 5.00 Weight (Pounds): 131 General Appearance: lethargic, confused Respiratory/Chest: decreased breath sounds Damien Rogers Oct 17, 2017 00:12
[2017-10-17] MEDS: HYDROcodone/Acetamin 10/325 tab ORAL PRN ×3 (03:06→20:38)
[2017-10-17 07:02] LABS: HEMATOCRIT 26.6 % (37.0-47.0); HEMOGLOBIN 8.4 G/DL (12.0-16.0); MEAN CORPUSCULAR VOLUME 102 FL (80-99); PLATELET COUNT 54 K/UL (150-450); RED CELL DISTRIBUTION WIDTH 17.2 % (11.6-14.8); WHITE BLOOD COUNT 3.7 K/UL (4.8-10.8)
[2017-10-17 07:07] LABS: INR 1.5 (0.9-1.1)
[2017-10-17 07:26] LABS: ALANINE AMINOTRANSFERASE 17 U/L (12-78); ALBUMIN 2.1 G/DL (3.4-5.0); ALBUMIN/GLOBULIN RATIO 0.6 (1.0-2.7); ALKALINE PHOSPHATASE 125 U/L (46-116); ANION GAP 6 mmol/L (5-15); ASPARTATE AMINO TRANSFERASE 43 U/L (15-37); BLOOD UREA NITROGEN 6 mg/dL (7-18); CALCIUM 8.6 MG/DL (8.5-10.1); CARBON DIOXIDE 25 MMOL/L (21-32); CHLORIDE 112 MMOL/L (98-107); CREATININE 0.5 MG/DL (0.55-1.30); POTASSIUM 4.2 MMOL/L (3.5-5.1); SODIUM 143 MMOL/L (136-145)
[2017-10-17 07:27] LABS: BILIRUBIN,DIRECT 1.8 MG/DL (0.0-0.3)
[2017-10-17] MEDS: Bisacodyl EC 5mg tab ORAL SCH (08:05)
[2017-10-17] MEDS: cefTRIAXone 1 GM in NS 55 ML IVPB SCH (08:05)
[2017-10-17] MEDS: Docusate 250mg cap ORAL SCH ×2 (08:06→17:28)
[2017-10-17] MEDS: Sertraline 50mg tab ORAL SCH (08:06)
[2017-10-17] MEDS: Ascorbic Acid 500mg tab ORAL SCH (08:07)
[2017-10-17] MEDS: Lactulose 20gm/30ml UDC ORAL SCH ×3 (08:07→17:28)
[2017-10-17] MEDS: Thiamine 100mg tab ORAL SCH (08:07)
[2017-10-17] MEDS ORDERED: Sodium Chloride 500ML 500 ML IV ONE (08:30)
--- NOTE | 2017-10-17 09:30 | Procedure Note ---
DATE OF PROCEDURE: 10/16/2017 PROCEDURE: Upper gastrointestinal endoscopy as well as colonoscopy. SURGEON: Leda Cunningham M.D. ANESTHESIA: Please see the separate anesthesiologist notes for details. PRE-ENDOSCOPIC DIAGNOSIS: Gastrointestinal bleeding. POST-ENDOSCOPIC DIAGNOSES: 1. A 9 cm hiatal hernia. 2. Severe gastroesophageal reflux disease with reflux related to ulcers in the lower esophagus. 3. Mild internal hemorrhoids. 4. Normal terminal ileum. 5. No blood seen in the upper or lower gastrointestinal tract. DESCRIPTION OF PROCEDURE: The procedure, its risks, indications, alternatives, and possible complications were explained to the patient and informed consent was obtained. The patient was then sedated in the left lateral decubitus position. A diagnostic upper endoscope was introduced through the oropharynx and advanced to the duodenum. The endoscope was then gradually withdrawn and the mucosa examined carefully. The colonoscope was introduced into the rectum and advanced to the cecum and then the terminal ileum without difficulty. The colonoscope was then gradually withdrawn. The mucosa was examined carefully. Examination findings are as listed above. No biopsies were obtained. The patient was sent to recovery in good condition. COMPLICATIONS: None. RECOMMENDATIONS: 1. Proton pump inhibitor. 2. Resume oral diet. 3. Follow blood count. 4. High-fiber diet and bowel regimen. Leda Cunningham M.D. DR: Corie JOB#: [id number] CC:
--- NOTE | 2017-10-17 10:14 | General Surgery Progress Note ---
General Surgery-Progress Note Subjective Symptoms: improved Additional Comments doing well. no complaints. no n/v/f/c. no abdominal pain. no more bleeding noted. Objective Last 24 Hour Vital Signs Date Time Temp Pulse Resp B/P (MAP) Pulse Ox O2 Delivery O2 Flow Rate FiO2 10/17/17 08:00 97.9 76 18 95/50 100 Room Air 97.9 10/17/17 04:00 98.2 71 18 87/46 97 Room Air 98.2 10/17/17 04:00 66 10/17/17 03:06 98.1 10/17/17 00:00 72 10/17/17 00:00 98.1 79 18 92/55 96 Room Air 98.1 10/16/17 20:00 97.9 85 20 104/74 98 Nasal Cannula 2.0 97.9 10/16/17 20:00 81 10/16/17 16:00 68 10/16/17 16:00 97.7 80 22 108/63 96 2.0 97.7 10/16/17 12:00 68 10/16/17 12:00 97.2 64 20 121/65 100 Room Air 97.2 10/16/17 11:35 79 17 101/59 100 Room Air 10/16/17 11:23 207.5 82 18 100 10/16/17 11:22 207.5 71 18 100 10/16/17 11:20 97.9 83 15 99/53 100 Room Air 97.9 10/16/17 11:05 82 16 95/58 100 Room Air 10/16/17 11:00 80 14 90/55 100 Room Air 10/16/17 10:54 97.5 71 18 94/61 100 Nasal Cannula 1.0 97.5 I&O Intake and Output 10/16/17 10/17/17 19:00 07:00 Intake Total 710 ml 1730.0 ml Output Total 650 ml 1 ml Balance 60 ml 1729.0 ml Intake Oral 600 ml 1160 ml IV Total 110 ml 570.0 ml Output Urine Total 650 ml 1 ml # Bowel Movements 1 Cardiovascular: RSR Respiratory: clear Abdomen: soft, flat, non-tender, present bowel sounds Extremities: no cyanosis Laboratory Tests Test 10/16/17 11:45 10/17/17 05:20 White Blood Count 2.8 K/UL (4.8-10.8) L 3.7 K/UL (4.8-10.8) L Red Blood Count 2.39 M/UL (4.20-5.40) L 2.60 M/UL (4.20-5.40) L Hemoglobin 7.7 G/DL (12.0-16.0) L 8.4 G/DL (12.0-16.0) L Hematocrit 24.5 % (37.0-47.0) L 26.6 % (37.0-47.0) L Mean Corpuscular Volume 103 FL (80-99) H 102 FL (80-99) H Mean Corpuscular Hemoglobin 32.2 PG (27.0-31.0) H 32.4 PG (27.0-31.0) H Mean Corpuscular Hemoglobin Concent 31.4 G/DL (32.0-36.0) L 31.7 G/DL (32.0-36.0) L Red Cell Distribution Width 17.4 % (11.6-14.8) H 17.2 % (11.6-14.8) H Platelet Count 49 K/UL (150-450) L 54 K/UL (150-450) L Mean Platelet Volume 8.3 FL (6.5-10.1) 8.2 FL (6.5-10.1) Neutrophils (%) (Auto) % (45.0-75.0) % (45.0-75.0) Lymphocytes (%) (Auto) % (20.0-45.0) % (20.0-45.0) Monocytes (%) (Auto) % (1.0-10.0) % (1.0-10.0) Eosinophils (%) (Auto) % (0.0-3.0) % (0.0-3.0) Basophils (%) (Auto) % (0.0-2.0) % (0.0-2.0) Differential Total Cells Counted 100 Neutrophils % (Manual) 61 % (45-75) Pending Lymphocytes % (Manual) 29 % (20-45) Pending Monocytes % (Manual) 10 % (1-10) Eosinophils % (Manual) 0 % (0-3) Basophils % (Manual) 0 % (0-2) Band Neutrophils 0 % (0-8) Platelet Estimate Decreased L Pending Platelet Morphology Normal Pending Hypochromasia 1+ Anisocytosis 1+ Macrocytosis 1+ Sodium Level 144 MMOL/L (136-145) 143 MMOL/L (136-145) Potassium Level 3.4 MMOL/L (3.5-5.1) L 4.2 MMOL/L (3.5-5.1) Chloride Level 113 MMOL/L (98-107) H 112 MMOL/L (98-107) H Carbon Dioxide Level 23 MMOL/L (21-32) 25 MMOL/L (21-32) Anion Gap 8 mmol/L (5-15) 6 mmol/L (5-15) Blood Urea Nitrogen 6 mg/dL (7-18) L 6 mg/dL (7-18) L Creatinine 0.5 MG/DL (0.55-1.30) L 0.5 MG/DL (0.55-1.30) L Estimat Glomerular Filtration Rate > 60 mL/min (>60) > 60 mL/min (>60) Glucose Level 79 MG/DL (74-106) 68 MG/DL (74-106) L Calcium Level 8.6 MG/DL (8.5-10.1) 8.6 MG/DL (8.5-10.1) Total Bilirubin 2.7 MG/DL (0.2-1.0) H 3.0 MG/DL (0.2-1.0) H Direct Bilirubin 1.5 MG/DL (0.0-0.3) H 1.8 MG/DL (0.0-0.3) H Aspartate Amino Transf (AST/SGOT) 42 U/L (15-37) H 43 U/L (15-37) H Alanine Aminotransferase (ALT/SGPT) 14 U/L (12-78) 17 U/L (12-78) Alkaline Phosphatase 120 U/L (46-116) H 125 U/L (46-116) H Ammonia 64 umol/L (11-32) H Total Protein 5.7 G/DL (6.4-8.2) L 5.8 G/DL (6.4-8.2) L Albumin 2.1 G/DL (3.4-5.0) L 2.1 G/DL (3.4-5.0) L Globulin 3.6 g/dL 3.7 g/dL Albumin/Globulin Ratio 0.6 (1.0-2.7) L 0.6 (1.0-2.7) L Prothrombin Time 15.4 SEC (9.30-11.50) H Prothromb Time International Ratio 1.5 (0.9-1.1) H Activated Partial Thromboplast Time 33 SEC (23-33) Phosphorus Level 4.0 MG/DL (2.5-4.9) Magnesium Level 1.2 MG/DL (1.8-2.4) L Plan Problems: (1) Rectal bleeding Assessment & Plan: Had Colonoscopy and EGD found to have hemorrhoids that were friable. no lesions seen or significant blood in colon. upper GI with GERD ulcers and hernia. Ultrasound with cholelithiasis and pericholecystic fluid. LFT's mild elevation. T bili elevated D bili elevated MRCP to evaluate for possible CBD obstruction. elevated labs likely from liver disease but will ensure with MRCP. will monitor for now. can consider hemorrhoidectomy as outpatient. if rebleeding significant while in hospital can consider but unlikely. transfuse prn. ppi. medical management of gerd. no acute surgical intervention necessary. patient currently not bleeding and stable. trend labs. will monitor and follow with recs. thank you for this consultation. Jc Arrington Oct 17, 2017 10:13
--- NOTE | 2017-10-17 10:45 | Consultation ---
DATE OF CONSULTATION: 10/16/2017 GASTROENTEROLOGY CONSULTATION CONSULTING PHYSICIAN: Leda Cunningham M.D. CHIEF COMPLAINT: I was asked to see this patient by Dr. Ernie Giron for evaluation of gastrointestinal bleeding and alcoholic liver disease. HISTORY OF PRESENT ILLNESS: The patient is a pleasant 42-year-old white woman with extensive alcohol history, who comes into the hospital due to rectal bleeding for the past month. She states that she has had intermittent bouts of hematochezia, which picked up over the last 3 to 4 days. She drinks about a pint of hard liquor daily for many years. She has been told she has alcoholic liver disease. She has never had endoscopy or colonoscopy, but she had blood transfusions in the past. PAST MEDICAL HISTORY: Alcoholic liver disease as described above and history of anemia. PAST SURGICAL HISTORY: None. FAMILY HISTORY: Noncontributory. SOCIAL HISTORY: The patient drinks half to one pint of alcohol daily. She does not smoke. REVIEW OF SYSTEMS: Otherwise negative. PHYSICAL EXAMINATION: GENERAL: A well-developed, well-nourished woman, seen in no distress. HEENT: Normocephalic and atraumatic. NECK: Supple. CHEST: Clear to auscultation. CARDIOVASCULAR: Regular rate. ABDOMEN: Soft. EXTREMITIES: No edema. LABORATORY DATA: Noted. ASSESSMENT: The patient has alcohol abuse with alcoholic hepatitis with descrim factor that measures 24 and therefore, she does not require steroids. However, she will be followed closely and she was strongly advised to abstain from drinking alcohol. For the upper vs. lower gastrointestinal bleeding, the patient should undergo endoscopy and colonoscopy to evaluate the sites and the nature of the gastrointestinal bleed. The indications, risks, alternatives, and possible complications of fall, seizures as well as the risk of continued treatment were explained to the patient and all questions were answered. RECOMMENDATIONS: 1. Keep the patient NPO. 2. Endoscopy and colonoscopy today. 3. Alcohol abstinence. 4. Follow laboratory parameters and examine. Thank you for asking me to participate in the care of this patient. Leda Cunningham M.D. DR: ROMAINE JOB#: [id number] CC: [place]
--- NOTE | 2017-10-17 11:38 | Cardiology Report ---
APPROVED REPORT EKG Measurement Heart [id number] Normal sinus rhythm Normal ECG
--- NOTE | 2017-10-17 12:07 | Infectious Diseases Prog Note ---
Assessment/Plan Assessment/Plan A; Cholelithiasis Alcoholic liver disease GI bleeding GERD Internal hemorrhoids P: continue Rocephin will f/u MRCP Subjective ROS Limited/Unobtainable: No Constitutional: Reports: no symptoms Respiratory: Reports: no symptoms Gastrointestinal/Abdominal: Reports: no symptoms Genitourinary: Reports: no symptoms Allergies: Coded Allergies: No Known Allergies (Unverified , 10/15/17) Objective Vital Signs Last 24 Hour Vital Signs Date Time Temp Pulse Resp B/P (MAP) Pulse Ox O2 Delivery O2 Flow Rate FiO2 10/17/17 08:00 78 10/17/17 08:00 97.9 76 18 95/50 100 Room Air 97.9 10/17/17 04:00 98.2 71 18 87/46 97 Room Air 98.2 10/17/17 04:00 66 10/17/17 03:06 98.1 10/17/17 00:00 72 10/17/17 00:00 98.1 79 18 92/55 96 Room Air 98.1 10/16/17 20:00 97.9 85 20 104/74 98 Nasal Cannula 2.0 97.9 10/16/17 20:00 81 10/16/17 16:00 68 10/16/17 16:00 97.7 80 22 108/63 96 2.0 97.7 Height (Feet): 5 Height (Inches): 5.00 Weight (Pounds): 131 General Appearance: no acute distress HEENT: mucous membranes moist Respiratory/Chest: lungs clear Cardiovascular: normal rate Abdomen: soft, non tender Extremities: no edema Neurologic/Psychiatric: alert, oriented x 3, responsive Microbiology Date/Time Source Procedure Growth Status 10/15/17 06:30 Nasal Nares MRSA Culture - Final NO METHICILLIN RESISTANT STAPH AUREUS... Complete 10/15/17 05:47 Urine,Clean Catch Urine Culture - Final Mixed Urogenital Contaminants Complete 10/15/17 06:30 Rectum VRE Culture - Final NO VANCOMYCIN RESISTANT ENTEROCOCCUS ... Complete Laboratory Tests Test 10/17/17 05:20 White Blood Count 3.7 K/UL (4.8-10.8) L Red Blood Count 2.60 M/UL (4.20-5.40) L Hemoglobin 8.4 G/DL (12.0-16.0) L Hematocrit 26.6 % (37.0-47.0) L Mean Corpuscular Volume 102 FL (80-99) H Mean Corpuscular Hemoglobin 32.4 PG (27.0-31.0) H Mean Corpuscular Hemoglobin Concent 31.7 G/DL (32.0-36.0) L Red Cell Distribution Width 17.2 % (11.6-14.8) H Platelet Count 54 K/UL (150-450) L Mean Platelet Volume 8.2 FL (6.5-10.1) Neutrophils (%) (Auto) % (45.0-75.0) Lymphocytes (%) (Auto) % (20.0-45.0) Monocytes (%) (Auto) % (1.0-10.0) Eosinophils (%) (Auto) % (0.0-3.0) Basophils (%) (Auto) % (0.0-2.0) Differential Total Cells Counted 100 Neutrophils % (Manual) 53 % (45-75) Lymphocytes % (Manual) 38 % (20-45) Monocytes % (Manual) 9 % (1-10) Eosinophils % (Manual) 0 % (0-3) Basophils % (Manual) 0 % (0-2) Band Neutrophils 0 % (0-8) Platelet Estimate Decreased L Platelet Morphology Normal Hypochromasia 1+ Anisocytosis 1+ Macrocytosis 1+ Prothrombin Time 15.4 SEC (9.30-11.50) H Prothromb Time International Ratio 1.5 (0.9-1.1) H Activated Partial Thromboplast Time 33 SEC (23-33) Sodium Level 143 MMOL/L (136-145) Potassium Level 4.2 MMOL/L (3.5-5.1) Chloride Level 112 MMOL/L (98-107) H Carbon Dioxide Level 25 MMOL/L (21-32) Anion Gap 6 mmol/L (5-15) Blood Urea Nitrogen 6 mg/dL (7-18) L Creatinine 0.5 MG/DL (0.55-1.30) L Estimat Glomerular Filtration Rate > 60 mL/min (>60) Glucose Level 68 MG/DL (74-106) L Calcium Level 8.6 MG/DL (8.5-10.1) Phosphorus Level 4.0 MG/DL (2.5-4.9) Magnesium Level 1.2 MG/DL (1.8-2.4) L Total Bilirubin 3.0 MG/DL (0.2-1.0) H Direct Bilirubin 1.8 MG/DL (0.0-0.3) H Aspartate Amino Transf (AST/SGOT) 43 U/L (15-37) H Alanine Aminotransferase (ALT/SGPT) 17 U/L (12-78) Alkaline Phosphatase 125 U/L (46-116) H Total Protein 5.8 G/DL (6.4-8.2) L Albumin 2.1 G/DL (3.4-5.0) L Globulin 3.7 g/dL Albumin/Globulin Ratio 0.6 (1.0-2.7) L Current Medications Medications (Trade) Dose Ordered Sig/Zandra Route PRN Reason Start Time Stop Time Status Last Admin Dose Admin Acetaminophen (Tylenol) 325 mg Q4H PRN ORAL Fever/Headache/Mild Pain 10/15/17 19:00 11/14/17 18:59 Acetaminophen/ Hydrocodone Bitart (Spencer 10/325) 1 tab Q4H PRN ORAL MOD-SEVERE PAIN 10/17/17 11:15 10/24/17 11:14 Ascorbic Acid (Vitamin C) 500 mg DAILY ORAL 10/16/17 09:00 11/15/17 08:59 10/17/17 08:07 Bisacodyl (Dulcolax) 5 mg DAILY ORAL 10/16/17 09:00 11/15/17 08:59 10/17/17 08:05 Ceftriaxone Sodium 1 gm/ Sodium Chloride 55 ml @ 110 mls/hr Q24H IVPB 10/16/17 09:00 10/23/17 08:59 10/17/17 08:05 Docusate Sodium (Colace) 250 mg TWICE A DAY ORAL 10/15/17 18:00 11/14/17 17:59 10/17/17 08:06 Folic Acid (Folate) 1 mg DAILY ORAL 10/16/17 09:00 11/15/17 08:59 10/17/17 08:06 Lactulose (Cephulac) 20 gm TID ORAL 10/15/17 18:00 11/14/17 17:59 10/17/17 08:07 Magnesium Sulfate 100 ml @ 100 mls/hr Q1H IVPB 10/17/17 11:49 10/17/17 15:48 Multivitamins (Multivitamins) 1 tab DAILY ORAL 10/16/17 09:00 11/15/17 08:59 10/17/17 08:06 Pantoprazole (Protonix) 40 mg BIAC ORAL 10/16/17 11:30 11/15/17 11:29 10/17/17 05:56 Sertraline HCl (Zoloft) 25 mg DAILY ORAL 10/16/17 09:00 11/15/17 08:59 10/17/17 08:06 Thiamine HCl (Vitamin B1) 100 mg DAILY ORAL 10/16/17 09:00 11/15/17 08:59 10/17/17 08:07 THERESE CAZARES Oct 17, 2017 12:07
--- NOTE | 2017-10-17 14:31 | Diagnostic Imaging Report ---
Indication: Abdominal pain. Technique: MRI of the abdomen was performed in a 1.5 Violet magnet. Pulse sequences obtained include coronal and axial T2 single shot fast spin echo breathhold and respiratory gated coronal T2 3-D M.R.C.P.; this data set was displayed in different projections or MIPs. In addition, multiple coronal oblique thin T2 weighted, fat saturated SE sequences obtained through the CBD. Comparison: Ultrasound 10/15/2017 Findings: The study is degraded by breathing motion which is considerable. The intrahepatic ducts are not dilated. The CBD is also not dilated. Main pancreatic duct is nondilated. The gallbladder is demonstrated and shows wall thickening. Difficult to completely exclude possibility of small stones in the gallbladder given the degree of breathing motion artifact present. There may be a single stone in the gallbladder lumen. There is a hiatal hernia. There are findings suggestive of chronic liver disease/cirrhosis. Correlate clinically. The ultrasound findings are misleading. The spleen is definitely enlarged measuring at least 16 cm. There is suspected nodularity of the liver surface demonstrated, marketed heterogeneous appearance of the liver parenchyma and trace ascites. Furthermore, the current study demonstrates recanalization of the umbilical vein which shows a prominent flow void extending to the subcutaneous fat of the anterior abdominal wall. IMPRESSION: No evidence of biliary ductal dilatation or obstruction. Evidence of chronic liver disease/cirrhosis with stigmata of portal hypertension including 16 cm spleen, trace ascites and recanalized umbilical vein. Suspected tiny gallstone. Thickening of the gallbladder wall. Hiatal hernia Severe breathing motion artifact
[2017-10-17] MEDS ORDERED: Tubing Blood Filter IV ONE (15:06)
--- NOTE | 2017-10-17 17:41 | Consultation ---
Consult Note Consult Note asked to eval for low BP s a 42-year-old female who has a history of alcoholism. She is currently in [facility] for rehabilitation from a severe bursitis of her. She presents with chief complaint of lower GI bleed. She's been having rectal bleeding on and off for a while but more severe in the last day or 2. Large amount of bright red blood per rectum with bowel movement. No trauma. Denies any other complaint. No mass. Assessment/Plan alcohol abuse with alcoholic hepatitis upper gastrointestinal bleeding, Thrombocytopenia, likely secondary to history of alcohol abuse, potential cirrhosis and potential splenomegaly. Anemia due to gastrointestinal bleed. 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 -Cirrhosis of the liver. Plan: Bollous Albumin and NS monitor lytes per consultants VEE STANLEY Oct 17, 2017 17:41
--- NOTE | 2017-10-17 18:07 | General Progress Note ---
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 Recommendations - PPI - po as tolerated - OOB - await MRCP Subjective Allergies: Coded Allergies: No Known Allergies (Unverified , 10/15/17) Subjective Feels OK no abd pain tolerating PO Objective Last 24 Hour Vital Signs Date Time Temp Pulse Resp B/P (MAP) Pulse Ox O2 Delivery O2 Flow Rate FiO2 10/17/17 16:00 106 10/17/17 16:00 97.7 80 18 109/70 98 Room Air 97.7 10/17/17 13:32 110/72 10/17/17 12:00 77 10/17/17 12:00 99.0 76 18 100/66 97 Room Air 99.0 10/17/17 08:00 78 10/17/17 08:00 97.9 76 18 95/50 100 Room Air 97.9 10/17/17 04:00 98.2 71 18 87/46 97 Room Air 98.2 10/17/17 04:00 66 10/17/17 03:06 98.1 10/17/17 00:00 72 10/17/17 00:00 98.1 79 18 92/55 96 Room Air 98.1 10/16/17 20:00 97.9 85 20 104/74 98 Nasal Cannula 2.0 97.9 10/16/17 20:00 81 Intake and Output 10/16/17 10/17/17 19:00 07:00 Intake Total 710 ml 1730.0 ml Output Total 650 ml 1 ml Balance 60 ml 1729.0 ml Intake Oral 600 ml 1160 ml IV Total 110 ml 570.0 ml Output Urine Total 650 ml 1 ml # Bowel Movements 1 Laboratory Tests 10/17/17 05:20: White Blood Count 3.7L, Red Blood Count 2.60L, Hemoglobin 8.4L, Hematocrit 26.6L , Mean Corpuscular Volume 102H, Mean Corpuscular Hemoglobin 32.4H, Mean Corpuscular Hemoglobin Concent 31.7L, Red Cell Distribution Width 17.2H, Platelet Count 54L, Mean Platelet Volume 8.2, Neutrophils (%) (Auto) , Lymphocytes (%) (Auto) , Monocytes (%) (Auto) , Eosinophils (%) (Auto) , Basophils (%) (Auto) , Differential Total Cells Counted 100, Neutrophils % ( Manual) 53, Lymphocytes % (Manual) 38, Monocytes % (Manual) 9, Eosinophils % ( Manual) 0, Basophils % (Manual) 0, Band Neutrophils 0, Platelet Estimate DecreasedL, Platelet Morphology Normal, Hypochromasia 1+, Anisocytosis 1+, Macrocytosis 1+, Prothrombin Time 15.4H, Prothromb Time International Ratio 1.5H , Activated Partial Thromboplast Time 33, Sodium Level 143, Potassium Level 4.2 , Chloride Level 112H, Carbon Dioxide Level 25, Anion Gap 6, Blood Urea Nitrogen 6L, Creatinine 0.5L, Estimat Glomerular Filtration Rate > 60, Glucose Level 68L, Calcium Level 8.6, Phosphorus Level 4.0, Magnesium Level 1.2L, Total Bilirubin 3.0H, Direct Bilirubin 1.8H, Aspartate Amino Transf (AST/SGOT) 43H, Alanine Aminotransferase (ALT/SGPT) 17, Alkaline Phosphatase 125H, Total Protein 5.8L, Albumin 2.1L, Globulin 3.7, Albumin/Globulin Ratio 0.6L Height (Feet): 5 Height (Inches): 5.00 Weight (Pounds): 131 Objective WDWN NCAT supple CTA RRR Soft NT ND No edema non focal YVETTE MO Oct 17, 2017 18:07
--- NOTE | 2017-10-17 19:53 | General Progress Note ---
Assessment/Plan Problem List: (1) Rectal bleeding ICD Codes: K62.5 - Hemorrhage of anus and rectum SNOMED: 83136375 Status: progressing Assessment/Plan hypotension improve check h/h rectal bleed s/p endoscopy found to have hemorrhoid and gerd ulcer large hiatel hernia moniter for bleeding Subjective ROS Limited/Unobtainable: Yes Constitutional: Reports: no symptoms Allergies: Coded Allergies: No Known Allergies (Unverified , 10/15/17) Subjective rectal bleed Objective Last 24 Hour Vital Signs Date Time Temp Pulse Resp B/P (MAP) Pulse Ox O2 Delivery O2 Flow Rate FiO2 10/17/17 16:00 106 10/17/17 16:00 97.7 80 18 109/70 98 Room Air 97.7 10/17/17 13:32 110/72 10/17/17 12:00 77 10/17/17 12:00 99.0 76 18 100/66 97 Room Air 99.0 10/17/17 08:00 78 10/17/17 08:00 97.9 76 18 95/50 100 Room Air 97.9 10/17/17 04:00 98.2 71 18 87/46 97 Room Air 98.2 10/17/17 04:00 66 10/17/17 03:06 98.1 10/17/17 00:00 72 10/17/17 00:00 98.1 79 18 92/55 96 Room Air 98.1 10/16/17 20:00 97.9 85 20 104/74 98 Nasal Cannula 2.0 97.9 10/16/17 20:00 81 Intake and Output 10/16/17 10/17/17 19:00 07:00 Intake Total 710 ml 1730.0 ml Output Total 650 ml 1 ml Balance 60 ml 1729.0 ml Intake Oral 600 ml 1160 ml IV Total 110 ml 570.0 ml Output Urine Total 650 ml 1 ml # Bowel Movements 1 Laboratory Tests 10/17/17 05:20: White Blood Count 3.7L, Red Blood Count 2.60L, Hemoglobin 8.4L, Hematocrit 26.6L , Mean Corpuscular Volume 102H, Mean Corpuscular Hemoglobin 32.4H, Mean Corpuscular Hemoglobin Concent 31.7L, Red Cell Distribution Width 17.2H, Platelet Count 54L, Mean Platelet Volume 8.2, Neutrophils (%) (Auto) , Lymphocytes (%) (Auto) , Monocytes (%) (Auto) , Eosinophils (%) (Auto) , Basophils (%) (Auto) , Differential Total Cells Counted 100, Neutrophils % ( Manual) 53, Lymphocytes % (Manual) 38, Monocytes % (Manual) 9, Eosinophils % ( Manual) 0, Basophils % (Manual) 0, Band Neutrophils 0, Platelet Estimate DecreasedL, Platelet Morphology Normal, Hypochromasia 1+, Anisocytosis 1+, Macrocytosis 1+, Prothrombin Time 15.4H, Prothromb Time International Ratio 1.5H , Activated Partial Thromboplast Time 33, Sodium Level 143, Potassium Level 4.2 , Chloride Level 112H, Carbon Dioxide Level 25, Anion Gap 6, Blood Urea Nitrogen 6L, Creatinine 0.5L, Estimat Glomerular Filtration Rate > 60, Glucose Level 68L, Calcium Level 8.6, Phosphorus Level 4.0, Magnesium Level 1.2L, Total Bilirubin 3.0H, Direct Bilirubin 1.8H, Aspartate Amino Transf (AST/SGOT) 43H, Alanine Aminotransferase (ALT/SGPT) 17, Alkaline Phosphatase 125H, Total Protein 5.8L, Albumin 2.1L, Globulin 3.7, Albumin/Globulin Ratio 0.6L 10/17/17 06:00: C-Reactive Protein, Quantitative 1.0H 10/17/17 18:35: Urine Random Sodium 142H Height (Feet): 5 Height (Inches): 5.00 Weight (Pounds): 131 Neck: supple Cardiovascular: normal rate Respiratory/Chest: lungs clear Abdomen: soft Ernie Giron MD Oct 17, 2017 19:52
[2017-10-18] VITALS: BP 86/52
[2017-10-18 04:00] VITALS: BP 97/66
[2017-10-18 08:06] LABS: MEAN CORPUSCULAR VOLUME 101 FL (80-99); PLATELET COUNT 56 K/UL (150-450); RED BLOOD COUNT 2.77 M/UL (4.20-5.40); RED CELL DISTRIBUTION WIDTH 16.7 % (11.6-14.8); WHITE BLOOD COUNT 3.2 K/UL (4.8-10.8)
[2017-10-18 08:42] LABS: ALANINE AMINOTRANSFERASE 18 U/L (12-78); ALBUMIN 2.7 G/DL (3.4-5.0); ALBUMIN/GLOBULIN RATIO 0.7 (1.0-2.7); ALKALINE PHOSPHATASE 154 U/L (46-116); ANION GAP 8 mmol/L (5-15); ASPARTATE AMINO TRANSFERASE 46 U/L (15-37); BLOOD UREA NITROGEN 3 mg/dL (7-18); CALCIUM 8.7 MG/DL (8.5-10.1); CARBON DIOXIDE 24 MMOL/L (21-32); CHLORIDE 109 MMOL/L (98-107); CHOLESTEROL 56 MG/DL (< 200); CREATININE 0.5 MG/DL (0.55-1.30); HDL CHOLESTEROL 16 MG/DL (40-60); POTASSIUM 3.4 MMOL/L (3.5-5.1); SODIUM 141 MMOL/L (136-145); TRIGLYCERIDES 34 MG/DL (30-150)
[2017-10-18 08:43] LABS: BILIRUBIN,DIRECT 1.4 MG/DL (0.0-0.3)
[2017-10-18 08:50] LABS: PHOSPHORUS 4.2 MG/DL (2.5-4.9)
[2017-10-18 09:00] VITALS: BP 111/63
[2017-10-18] MEDS: cefTRIAXone 1 GM in NS 55 ML IVPB SCH (09:15)
[2017-10-18] MEDS: Sertraline 50mg tab ORAL SCH (09:16)
[2017-10-18] MEDS: Thiamine 100mg tab ORAL SCH (09:16)
[2017-10-18] MEDS: Bisacodyl EC 5mg tab ORAL SCH (09:16)
[2017-10-18] MEDS: Docusate 250mg cap ORAL SCH ×2 (09:16→18:10)
[2017-10-18] MEDS: HYDROcodone/Acetamin 10/325 tab ORAL PRN ×4 (09:17→22:08)
[2017-10-18] MEDS: Lactulose 20gm/30ml UDC ORAL SCH ×3 (09:18→18:09)
[2017-10-18] MEDS: Ascorbic Acid 500mg tab ORAL SCH (09:19)
--- NOTE | 2017-10-18 10:30 | Nephrology Progress Note ---
Assessment/Plan Problem List: (1) Electrolyte abnormality (2) Hypotension (3) Acute alcoholic liver disease Assessment Hypotension alcohol abuse with alcoholic hepatitis upper gastrointestinal bleeding, Thrombocytopenia, likely secondary to history of alcohol abuse, potential cirrhosis and potential splenomegaly. Anemia due to gastrointestinal bleed. 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 -Cirrhosis of the liver. Plan cortisol level pending add Midodrine mag and K supplement per orders Subjective ROS Limited/Unobtainable: No Constitutional: Reports: malaise Objective Objective Last 24 Hour Vital Signs Date Time Temp Pulse Resp B/P (MAP) Pulse Ox O2 Delivery O2 Flow Rate FiO2 10/18/17 09:00 98.1 81 20 111/63 98 Room Air 98.1 10/18/17 04:00 78 10/18/17 04:00 98.2 76 20 97/66 98 Room Air 98.2 10/18/17 00:00 70 10/18/17 00:00 98.2 77 22 86/52 96 Room Air 98.2 10/17/17 20:00 98.6 87 20 109/71 100 Room Air 98.6 10/17/17 20:00 96 10/17/17 16:00 106 10/17/17 16:00 97.7 80 18 109/70 98 Room Air 97.7 10/17/17 13:32 110/72 10/17/17 12:00 77 10/17/17 12:00 99.0 76 18 100/66 97 Room Air 99.0 Intake and Output 10/17/17 10/18/17 19:00 07:00 Intake Total 2625 ml 600 ml Balance 2625 ml 600 ml Intake Oral 480 ml 600 ml IV Total 2145 ml # Voids 4 # Bowel Movements 2 Laboratory Tests 10/17/17 18:35: Urine Random Sodium 142H 10/18/17 07:15: White Blood Count 3.2L, Red Blood Count 2.77L, Hemoglobin 9.0L, Hematocrit 28.0L , Mean Corpuscular Volume 101H, Mean Corpuscular Hemoglobin 32.7H, Mean Corpuscular Hemoglobin Concent 32.2, Red Cell Distribution Width 16.7H, Platelet Count 56L, Mean Platelet Volume 8.3, Neutrophils (%) (Auto) , Lymphocytes (%) (Auto) , Monocytes (%) (Auto) , Eosinophils (%) (Auto) , Basophils (%) (Auto) , Differential Total Cells Counted 100, Neutrophils % ( Manual) 61, Lymphocytes % (Manual) 27, Monocytes % (Manual) 7, Eosinophils % ( Manual) 4H, Basophils % (Manual) 1, Band Neutrophils 0, Platelet Estimate DecreasedL, Platelet Morphology Normal, Hypochromasia 2+, Anisocytosis 1+, Macrocytosis 1+, Sodium Level 141, Potassium Level 3.4L, Chloride Level 109H, Carbon Dioxide Level 24, Anion Gap 8, Blood Urea Nitrogen 3L, Creatinine 0.5L, Estimat Glomerular Filtration Rate > 60, Glucose Level 99, Hemoglobin A1c 4.7, Uric Acid 2.6, Calcium Level 8.7, Phosphorus Level 4.2, Magnesium Level 1.7L, Total Bilirubin 2.0H, Direct Bilirubin 1.4H, Gamma Glutamyl Transpeptidase 244H , Aspartate Amino Transf (AST/SGOT) 46H, Alanine Aminotransferase (ALT/SGPT) 18 , Alkaline Phosphatase 154H, Ammonia 55H, Pro-B-Type Natriuretic Peptide 444H, Total Protein 6.7, Albumin 2.7L, Globulin 4.0, Albumin/Globulin Ratio 0.7L, Triglycerides Level 34, Cholesterol Level 56, LDL Cholesterol 47, HDL Cholesterol 16L, Cholesterol/HDL Ratio 3.5, Thyroid Stimulating Hormone (TSH) 4.929H, Cortisol AM Sample [Pending] Height (Feet): 5 Height (Inches): 5.00 Weight (Pounds): 131 General Appearance: no apparent distress Cardiovascular: normal rate Respiratory/Chest: decreased breath sounds Abdomen: distended Objective no change VEE STANLEY Oct 18, 2017 10:30
--- NOTE | 2017-10-18 10:44 | General Progress Note ---
Assessment/Plan Assessment/Plan 1. Pancytopenia, likely secondary to history of alcohol abuse, potential cirrhosis and potential splenomegaly. --> Obtain ultrasound of the abdomen, human immunodeficiency virus, hepatitis. --> Abd us results: Cholelithiasis. Gallbladder wall thickening and pericholecystic fluid is concerning for acute cholecystitis. --> S/P Abd MRI: Evidence of chronic liver disease/cirrhosis with stigmata of portal hypertension including 16 cm spleen, trace ascites and recanalized umbilical vein. Suspected tiny gallstone. Thickening of the gallbladder wall. Hiatal hernia --> HIV and Hep panel were both negative. --> Transfuse if hgb <7 or plt <20 --> Levels improved from yesterday. 2. Anemia due to gastrointestinal bleed. GI evaluation by Dr. Cunningham. --> ++Occult blood --> monitor closely. 3. Macrocytosis, potentially secondary to alcohol abuse. Continue to closely monitor. 4. 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 --> Recommend cessation 5. Cirrhosis of the liver. 6. Gastrointestinal bleed. --> Evaluation by GI Service. EGD and colonoscopy as per GI Service. 7. Alcoholism. Again, recommend the patient to stop drinking. Subjective Date patient seen: Oct 17, 2017 Constitutional: Denies: no symptoms, chills, diaphoresis, fever, malaise, weakness, other HEENT: Denies: no symptoms, eye pain, blurred vision, tearing, double vision, ear pain, ear discharge, nose pain, nose congestion, throat pain, throat swelling, mouth pain, mouth swelling, other Cardiovascular: Denies: no symptoms, chest pain, edema, irregular heart rate, lightheadedness, palpitations, syncope, other Respiratory: Denies: no symptoms, cough, orthopnea, shortness of breath, SOB with excertion, SOB at rest, sputum, stridor, wheezing, other Gastrointestinal/Abdominal: Denies: no symptoms, abdomen distended, abdominal pain, black stools, tarry stools, blood in stool, constipated, diarrhea, difficulty swallowing, nausea, poor appetite, poor fluid intake, rectal bleeding , vomiting, other Genitourinary: Denies: no symptoms, burning, discharge, frequency, flank pain, hematuria, incontinence, pain, urgency, other Hematologic/Lymphatic: Reports: other - pancytopenia Allergies: Coded Allergies: No Known Allergies (Unverified , 10/15/17) Subjective S/P MRI. Wbc, hgb, and platelet levels slightly improved from yesterday. Objective Last 24 Hour Vital Signs Date Time Temp Pulse Resp B/P (MAP) Pulse Ox O2 Delivery O2 Flow Rate FiO2 10/18/17 09:00 98.1 81 20 111/63 98 Room Air 98.1 10/18/17 04:00 78 10/18/17 04:00 98.2 76 20 97/66 98 Room Air 98.2 10/18/17 00:00 70 10/18/17 00:00 98.2 77 22 86/52 96 Room Air 98.2 10/17/17 20:00 98.6 87 20 109/71 100 Room Air 98.6 10/17/17 20:00 96 10/17/17 16:00 106 10/17/17 16:00 97.7 80 18 109/70 98 Room Air 97.7 10/17/17 13:32 110/72 10/17/17 12:00 77 10/17/17 12:00 99.0 76 18 100/66 97 Room Air 99.0 Intake and Output 10/17/17 10/18/17 19:00 07:00 Intake Total 2625 ml 600 ml Balance 2625 ml 600 ml Intake Oral 480 ml 600 ml IV Total 2145 ml # Voids 4 # Bowel Movements 2 Laboratory Tests 10/17/17 18:35: Urine Random Sodium 142H 10/18/17 07:15: White Blood Count 3.2L, Red Blood Count 2.77L, Hemoglobin 9.0L, Hematocrit 28.0L , Mean Corpuscular Volume 101H, Mean Corpuscular Hemoglobin 32.7H, Mean Corpuscular Hemoglobin Concent 32.2, Red Cell Distribution Width 16.7H, Platelet Count 56L, Mean Platelet Volume 8.3, Neutrophils (%) (Auto) , Lymphocytes (%) (Auto) , Monocytes (%) (Auto) , Eosinophils (%) (Auto) , Basophils (%) (Auto) , Differential Total Cells Counted 100, Neutrophils % ( Manual) 61, Lymphocytes % (Manual) 27, Monocytes % (Manual) 7, Eosinophils % ( Manual) 4H, Basophils % (Manual) 1, Band Neutrophils 0, Platelet Estimate DecreasedL, Platelet Morphology Normal, Hypochromasia 2+, Anisocytosis 1+, Macrocytosis 1+, Sodium Level 141, Potassium Level 3.4L, Chloride Level 109H, Carbon Dioxide Level 24, Anion Gap 8, Blood Urea Nitrogen 3L, Creatinine 0.5L, Estimat Glomerular Filtration Rate > 60, Glucose Level 99, Hemoglobin A1c 4.7, Uric Acid 2.6, Calcium Level 8.7, Phosphorus Level 4.2, Magnesium Level 1.7L, Total Bilirubin 2.0H, Direct Bilirubin 1.4H, Gamma Glutamyl Transpeptidase 244H , Aspartate Amino Transf (AST/SGOT) 46H, Alanine Aminotransferase (ALT/SGPT) 18 , Alkaline Phosphatase 154H, Ammonia 55H, Pro-B-Type Natriuretic Peptide 444H, Total Protein 6.7, Albumin 2.7L, Globulin 4.0, Albumin/Globulin Ratio 0.7L, Triglycerides Level 34, Cholesterol Level 56, LDL Cholesterol 47, HDL Cholesterol 16L, Cholesterol/HDL Ratio 3.5, Thyroid Stimulating Hormone (TSH) 4.929H, Cortisol AM Sample [Pending] Height (Feet): 5 Height (Inches): 5.00 Weight (Pounds): 131 General Appearance: lethargic Respiratory/Chest: decreased breath sounds Damien Rogers Oct 18, 2017 10:44
[2017-10-18 12:00] VITALS: BP 106/76
--- NOTE | 2017-10-18 12:05 | General Surgery Progress Note ---
General Surgery-Progress Note Subjective Symptoms: improved Additional Comments no acute events. comfortable. no bleeding Objective Last 24 Hour Vital Signs Date Time Temp Pulse Resp B/P (MAP) Pulse Ox O2 Delivery O2 Flow Rate FiO2 10/18/17 09:00 98.1 81 20 111/63 98 Room Air 98.1 10/18/17 04:00 78 10/18/17 04:00 98.2 76 20 97/66 98 Room Air 98.2 10/18/17 00:00 70 10/18/17 00:00 98.2 77 22 86/52 96 Room Air 98.2 10/17/17 20:00 98.6 87 20 109/71 100 Room Air 98.6 10/17/17 20:00 96 10/17/17 16:00 106 10/17/17 16:00 97.7 80 18 109/70 98 Room Air 97.7 10/17/17 13:32 110/72 I&O Intake and Output 10/17/17 10/18/17 19:00 07:00 Intake Total 2625 ml 600 ml Balance 2625 ml 600 ml Intake Oral 480 ml 600 ml IV Total 2145 ml # Voids 4 # Bowel Movements 2 Cardiovascular: RSR Respiratory: clear Abdomen: soft, flat, non-tender, present bowel sounds Extremities: no tenderness Laboratory Tests Test 10/17/17 18:35 10/18/17 07:15 Urine Random Sodium 142 mmol/L (20-110) H White Blood Count 3.2 K/UL (4.8-10.8) L Red Blood Count 2.77 M/UL (4.20-5.40) L Hemoglobin 9.0 G/DL (12.0-16.0) L Hematocrit 28.0 % (37.0-47.0) L Mean Corpuscular Volume 101 FL (80-99) H Mean Corpuscular Hemoglobin 32.7 PG (27.0-31.0) H Mean Corpuscular Hemoglobin Concent 32.2 G/DL (32.0-36.0) Red Cell Distribution Width 16.7 % (11.6-14.8) H Platelet Count 56 K/UL (150-450) L Mean Platelet Volume 8.3 FL (6.5-10.1) Neutrophils (%) (Auto) % (45.0-75.0) Lymphocytes (%) (Auto) % (20.0-45.0) Monocytes (%) (Auto) % (1.0-10.0) Eosinophils (%) (Auto) % (0.0-3.0) Basophils (%) (Auto) % (0.0-2.0) Differential Total Cells Counted 100 Neutrophils % (Manual) 61 % (45-75) Lymphocytes % (Manual) 27 % (20-45) Monocytes % (Manual) 7 % (1-10) Eosinophils % (Manual) 4 % (0-3) H Basophils % (Manual) 1 % (0-2) Band Neutrophils 0 % (0-8) Platelet Estimate Decreased L Platelet Morphology Normal Hypochromasia 2+ Anisocytosis 1+ Macrocytosis 1+ Sodium Level 141 MMOL/L (136-145) Potassium Level 3.4 MMOL/L (3.5-5.1) L Chloride Level 109 MMOL/L (98-107) H Carbon Dioxide Level 24 MMOL/L (21-32) Anion Gap 8 mmol/L (5-15) Blood Urea Nitrogen 3 mg/dL (7-18) L Creatinine 0.5 MG/DL (0.55-1.30) L Estimat Glomerular Filtration Rate > 60 mL/min (>60) Glucose Level 99 MG/DL (74-106) Hemoglobin A1c 4.7 % (4.3-6.0) Uric Acid 2.6 MG/DL (2.6-7.2) Calcium Level 8.7 MG/DL (8.5-10.1) Phosphorus Level 4.2 MG/DL (2.5-4.9) Magnesium Level 1.7 MG/DL (1.8-2.4) L Total Bilirubin 2.0 MG/DL (0.2-1.0) H Direct Bilirubin 1.4 MG/DL (0.0-0.3) H Gamma Glutamyl Transpeptidase 244 U/L (5-85) H Aspartate Amino Transf (AST/SGOT) 46 U/L (15-37) H Alanine Aminotransferase (ALT/SGPT) 18 U/L (12-78) Alkaline Phosphatase 154 U/L (46-116) H Ammonia 55 umol/L (11-32) H Pro-B-Type Natriuretic Peptide 444 pg/mL (0-125) H Total Protein 6.7 G/DL (6.4-8.2) Albumin 2.7 G/DL (3.4-5.0) L Globulin 4.0 g/dL Albumin/Globulin Ratio 0.7 (1.0-2.7) L Triglycerides Level 34 MG/DL (30-150) Cholesterol Level 56 MG/DL (< 200) LDL Cholesterol 47 mg/dL (<100) HDL Cholesterol 16 MG/DL (40-60) L Cholesterol/HDL Ratio 3.5 (3.3-4.4) Thyroid Stimulating Hormone (TSH) 4.929 uiU/mL (0.358-3.740) Cortisol AM Sample Pending Plan Problems: (1) Rectal bleeding Assessment & Plan: Had Colonoscopy and EGD found to have hemorrhoids that were friable. no lesions seen or significant blood in colon. upper GI with GERD ulcers and hernia. Ultrasound with cholelithiasis and pericholecystic fluid. LFT's mild elevation. T bili elevated D bili elevated. MRCP without biliary ductal obstruction. chronic liver disease noted. lab abnormalities due to liver disease will monitor for now. can consider hemorrhoidectomy as outpatient. if rebleeding significant while in hospital can consider but unlikely. transfuse prn. ppi. medical management of gerd. no acute surgical intervention necessary. patient currently not bleeding and stable. will monitor and follow with recs. thank you for this consultation. Jc Arrington Oct 18, 2017 12:05
[2017-10-18 12:16] LABS: APTT 1:1 MIX SALINE 62.8 sec (Not Estab.); APTT 1:1 NORMAL PLASMA 27.5 sec (22.9-30.2); APTT 1:1NP MIX 60M INCUBATION 29.9 sec (22.9-30.2); APTT 1:1NP MIX CONTROL 32.4 sec (22.9-30.2)
--- NOTE | 2017-10-18 14:31 | General Progress Note ---
Assessment/Plan Problem List: (1) Hiatal hernia ICD Codes: K44.9 - Diaphragmatic hernia without obstruction or gangrene SNOMED: 85386388 (2) Cirrhosis ICD Codes: K74.60 - Unspecified cirrhosis of liver SNOMED: 83264141 (3) Hypotension ICD Codes: I95.9 - Hypotension, unspecified SNOMED: 32565695 (4) Acute alcoholic liver disease ICD Codes: K70.10 - Alcoholic hepatitis without ascites SNOMED: 3092022 Assessment/Plan MRI reviewed fu labs supportive care Subjective ROS Limited/Unobtainable: Yes Allergies: Coded Allergies: No Known Allergies (Unverified , 10/15/17) Subjective no event Objective Last 24 Hour Vital Signs Date Time Temp Pulse Resp B/P (MAP) Pulse Ox O2 Delivery O2 Flow Rate FiO2 10/18/17 12:00 72 10/18/17 12:00 98.1 85 20 106/76 98 Room Air 98.1 10/18/17 09:00 98.1 81 20 111/63 98 Room Air 98.1 10/18/17 08:00 73 10/18/17 04:00 78 10/18/17 04:00 98.2 76 20 97/66 98 Room Air 98.2 10/18/17 00:00 70 10/18/17 00:00 98.2 77 22 86/52 96 Room Air 98.2 10/17/17 20:00 98.6 87 20 109/71 100 Room Air 98.6 10/17/17 20:00 96 10/17/17 16:00 106 10/17/17 16:00 97.7 80 18 109/70 98 Room Air 97.7 Intake and Output 10/17/17 10/18/17 19:00 07:00 Intake Total 2625 ml 600 ml Balance 2625 ml 600 ml Intake Oral 480 ml 600 ml IV Total 2145 ml # Voids 4 # Bowel Movements 2 Laboratory Tests 10/17/17 18:35: Urine Random Sodium 142H 10/18/17 07:15: White Blood Count 3.2L, Red Blood Count 2.77L, Hemoglobin 9.0L, Hematocrit 28.0L , Mean Corpuscular Volume 101H, Mean Corpuscular Hemoglobin 32.7H, Mean Corpuscular Hemoglobin Concent 32.2, Red Cell Distribution Width 16.7H, Platelet Count 56L, Mean Platelet Volume 8.3, Neutrophils (%) (Auto) , Lymphocytes (%) (Auto) , Monocytes (%) (Auto) , Eosinophils (%) (Auto) , Basophils (%) (Auto) , Differential Total Cells Counted 100, Neutrophils % ( Manual) 61, Lymphocytes % (Manual) 27, Monocytes % (Manual) 7, Eosinophils % ( Manual) 4H, Basophils % (Manual) 1, Band Neutrophils 0, Platelet Estimate DecreasedL, Platelet Morphology Normal, Hypochromasia 2+, Anisocytosis 1+, Macrocytosis 1+, Sodium Level 141, Potassium Level 3.4L, Chloride Level 109H, Carbon Dioxide Level 24, Anion Gap 8, Blood Urea Nitrogen 3L, Creatinine 0.5L, Estimat Glomerular Filtration Rate > 60, Glucose Level 99, Hemoglobin A1c 4.7, Uric Acid 2.6, Calcium Level 8.7, Phosphorus Level 4.2, Magnesium Level 1.7L, Total Bilirubin 2.0H, Direct Bilirubin 1.4H, Gamma Glutamyl Transpeptidase 244H , Aspartate Amino Transf (AST/SGOT) 46H, Alanine Aminotransferase (ALT/SGPT) 18 , Alkaline Phosphatase 154H, Ammonia 55H, Pro-B-Type Natriuretic Peptide 444H, Total Protein 6.7, Albumin 2.7L, Globulin 4.0, Albumin/Globulin Ratio 0.7L, Triglycerides Level 34, Cholesterol Level 56, LDL Cholesterol 47, HDL Cholesterol 16L, Cholesterol/HDL Ratio 3.5, Thyroid Stimulating Hormone (TSH) 4.929H, Cortisol AM Sample [Pending] Procedure: MRI Abdomen no Contrast Indication: Abdominal pain. Technique: MRI of the abdomen was performed in a 1.5 Violet magnet. Pulse sequences obtained include coronal and axial T2 single shot fast spin echo breathhold and respiratory gated coronal T2 3-D M.R.C.P.; this data set was displayed in different projections or MIPs. In addition, multiple coronal oblique thin T2 weighted, fat saturated SE sequences obtained through the CBD. Comparison: Ultrasound 10/15/2017 Findings: The study is degraded by breathing motion which is considerable. The intrahepatic ducts are not dilated. The CBD is also not dilated. Main pancreatic duct is nondilated. The gallbladder is demonstrated and shows wall thickening. Difficult to completely exclude possibility of small stones in the gallbladder given the degree of breathing motion artifact present. There may be a single stone in the gallbladder lumen. There is a hiatal hernia. There are findings suggestive of chronic liver disease/cirrhosis. Correlate clinically. The ultrasound findings are misleading. The spleen is definitely enlarged measuring at least 16 cm. There is suspected nodularity of the liver surface demonstrated, marketed heterogeneous appearance of the liver parenchyma and trace ascites. Furthermore, the current study demonstrates recanalization of the umbilical vein which shows a prominent flow void extending to the subcutaneous fat of the anterior abdominal wall. IMPRESSION: No evidence of biliary ductal dilatation or obstruction. Evidence of chronic liver disease/cirrhosis with stigmata of portal hypertension including 16 cm spleen, trace ascites and recanalized umbilical vein. Suspected tiny gallstone. Thickening of the gallbladder wall. Hiatal hernia Severe breathing motion artifact Height (Feet): 5 Height (Inches): 5.00 Weight (Pounds): 131 General Appearance: no apparent distress EENT: normal ENT inspection Neck: supple Cardiovascular: normal rate Respiratory/Chest: decreased breath sounds Abdomen: normal bowel sounds, non tender, soft Extremities: non-tender VINCENZO BAKER Oct 18, 2017 14:31
[2017-10-18 16:00] VITALS: BP 88/29
[2017-10-18 20:00] VITALS: BP 112/45
--- NOTE | 2017-10-18 20:21 | General Progress Note ---
Assessment/Plan Problem List: (1) Rectal bleeding ICD Codes: K62.5 - Hemorrhage of anus and rectum SNOMED: 05528640 Status: progressing Assessment/Plan rectal bleeding is under control wants to go back to snf dc if ok w gi and heme/onc Subjective ROS Limited/Unobtainable: Yes Allergies: Coded Allergies: No Known Allergies (Unverified , 10/15/17) Subjective rectal bleed Objective Last 24 Hour Vital Signs Date Time Temp Pulse Resp B/P (MAP) Pulse Ox O2 Delivery O2 Flow Rate FiO2 10/18/17 16:00 98.1 74 20 88/29 98 Room Air 98.1 10/18/17 16:00 60 10/18/17 12:00 72 10/18/17 12:00 98.1 85 20 106/76 98 Room Air 98.1 10/18/17 09:00 98.1 81 20 111/63 98 Room Air 98.1 10/18/17 08:00 73 10/18/17 04:00 78 10/18/17 04:00 98.2 76 20 97/66 98 Room Air 98.2 10/18/17 00:00 70 10/18/17 00:00 98.2 77 22 86/52 96 Room Air 98.2 Intake and Output 10/17/17 10/18/17 19:00 07:00 Intake Total 2625 ml 600 ml Balance 2625 ml 600 ml Intake Oral 480 ml 600 ml IV Total 2145 ml # Voids 4 # Bowel Movements 2 Laboratory Tests 10/18/17 07:15: White Blood Count 3.2L, Red Blood Count 2.77L, Hemoglobin 9.0L, Hematocrit 28.0L , Mean Corpuscular Volume 101H, Mean Corpuscular Hemoglobin 32.7H, Mean Corpuscular Hemoglobin Concent 32.2, Red Cell Distribution Width 16.7H, Platelet Count 56L, Mean Platelet Volume 8.3, Neutrophils (%) (Auto) , Lymphocytes (%) (Auto) , Monocytes (%) (Auto) , Eosinophils (%) (Auto) , Basophils (%) (Auto) , Differential Total Cells Counted 100, Neutrophils % ( Manual) 61, Lymphocytes % (Manual) 27, Monocytes % (Manual) 7, Eosinophils % ( Manual) 4H, Basophils % (Manual) 1, Band Neutrophils 0, Platelet Estimate DecreasedL, Platelet Morphology Normal, Hypochromasia 2+, Anisocytosis 1+, Macrocytosis 1+, Sodium Level 141, Potassium Level 3.4L, Chloride Level 109H, Carbon Dioxide Level 24, Anion Gap 8, Blood Urea Nitrogen 3L, Creatinine 0.5L, Estimat Glomerular Filtration Rate > 60, Glucose Level 99, Hemoglobin A1c 4.7, Uric Acid 2.6, Calcium Level 8.7, Phosphorus Level 4.2, Magnesium Level 1.7L, Total Bilirubin 2.0H, Direct Bilirubin 1.4H, Gamma Glutamyl Transpeptidase 244H , Aspartate Amino Transf (AST/SGOT) 46H, Alanine Aminotransferase (ALT/SGPT) 18 , Alkaline Phosphatase 154H, Ammonia 55H, Pro-B-Type Natriuretic Peptide 444H, Total Protein 6.7, Albumin 2.7L, Globulin 4.0, Albumin/Globulin Ratio 0.7L, Triglycerides Level 34, Cholesterol Level 56, LDL Cholesterol 47, HDL Cholesterol 16L, Cholesterol/HDL Ratio 3.5, Thyroid Stimulating Hormone (TSH) 4.929H, Cortisol AM Sample [Pending] Height (Feet): 5 Height (Inches): 5.00 Weight (Pounds): 131 Cardiovascular: normal rate Abdomen: non tender Ernie Giron MD Oct 18, 2017 20:21
--- NOTE | 2017-10-18 23:54 | General Progress Note ---
Assessment/Plan Assessment/Plan 1. Pancytopenia, likely secondary to history of alcohol abuse, potential cirrhosis and potential splenomegaly. --> Obtain ultrasound of the abdomen, human immunodeficiency virus, hepatitis. --> Abd us results: Cholelithiasis. Gallbladder wall thickening and pericholecystic fluid is concerning for acute cholecystitis. --> S/P Abd MRI: Evidence of chronic liver disease/cirrhosis with stigmata of portal hypertension including 16 cm spleen, trace ascites and recanalized umbilical vein. Suspected tiny gallstone. Thickening of the gallbladder wall. Hiatal hernia --> HIV and Hep panel were both negative. --> Transfuse if hgb <7 or plt <20 --> Levels continue to improved. Trend cbc daily. 2. Anemia due to gastrointestinal bleed. --> GI evaluation by Dr. Cunningham. --> ++Occult blood --> monitor closely. --> Transfuse if hemoglobin <7 3. Macrocytosis, potentially secondary to alcohol abuse. --> Continue to closely monitor. 4. 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 --> Recommend cessation 5. Cirrhosis of the liver. 6. Gastrointestinal bleed. --> Evaluation by GI Service. EGD and colonoscopy as per GI Service. 7. Alcoholism. Again, recommend the patient to stop drinking. Subjective Date patient seen: Oct 18, 2017 Constitutional: Denies: no symptoms, chills, diaphoresis, fever, malaise, weakness, other HEENT: Denies: no symptoms, eye pain, blurred vision, tearing, double vision, ear pain, ear discharge, nose pain, nose congestion, throat pain, throat swelling, mouth pain, mouth swelling, other Cardiovascular: Denies: no symptoms, chest pain, edema, irregular heart rate, lightheadedness, palpitations, syncope, other Respiratory: Denies: no symptoms, cough, orthopnea, shortness of breath, SOB with excertion, SOB at rest, sputum, stridor, wheezing, other Gastrointestinal/Abdominal: Denies: no symptoms, abdomen distended, abdominal pain, black stools, tarry stools, blood in stool, constipated, diarrhea, difficulty swallowing, nausea, poor appetite, poor fluid intake, rectal bleeding , vomiting, other Allergies: Coded Allergies: No Known Allergies (Unverified , 10/15/17) Subjective No new events overnight. No fever. Pending discharge. Objective Last 24 Hour Vital Signs Date Time Temp Pulse Resp B/P (MAP) Pulse Ox O2 Delivery O2 Flow Rate FiO2 10/18/17 20:00 98.2 68 19 112/45 99 Room Air 98.2 10/18/17 16:00 98.1 74 20 88/29 98 Room Air 98.1 10/18/17 16:00 60 10/18/17 12:00 72 10/18/17 12:00 98.1 85 20 106/76 98 Room Air 98.1 10/18/17 09:00 98.1 81 20 111/63 98 Room Air 98.1 10/18/17 08:00 73 10/18/17 04:00 78 10/18/17 04:00 98.2 76 20 97/66 98 Room Air 98.2 10/18/17 00:00 70 10/18/17 00:00 98.2 77 22 86/52 96 Room Air 98.2 Intake and Output 10/17/17 10/18/17 19:00 07:00 Intake Total 2625 ml 600 ml Balance 2625 ml 600 ml Intake Oral 480 ml 600 ml IV Total 2145 ml # Voids 4 # Bowel Movements 2 Laboratory Tests 10/18/17 07:15: White Blood Count 3.2L, Red Blood Count 2.77L, Hemoglobin 9.0L, Hematocrit 28.0L , Mean Corpuscular Volume 101H, Mean Corpuscular Hemoglobin 32.7H, Mean Corpuscular Hemoglobin Concent 32.2, Red Cell Distribution Width 16.7H, Platelet Count 56L, Mean Platelet Volume 8.3, Neutrophils (%) (Auto) , Lymphocytes (%) (Auto) , Monocytes (%) (Auto) , Eosinophils (%) (Auto) , Basophils (%) (Auto) , Differential Total Cells Counted 100, Neutrophils % ( Manual) 61, Lymphocytes % (Manual) 27, Monocytes % (Manual) 7, Eosinophils % ( Manual) 4H, Basophils % (Manual) 1, Band Neutrophils 0, Platelet Estimate DecreasedL, Platelet Morphology Normal, Hypochromasia 2+, Anisocytosis 1+, Macrocytosis 1+, Sodium Level 141, Potassium Level 3.4L, Chloride Level 109H, Carbon Dioxide Level 24, Anion Gap 8, Blood Urea Nitrogen 3L, Creatinine 0.5L, Estimat Glomerular Filtration Rate > 60, Glucose Level 99, Hemoglobin A1c 4.7, Uric Acid 2.6, Calcium Level 8.7, Phosphorus Level 4.2, Magnesium Level 1.7L, Total Bilirubin 2.0H, Direct Bilirubin 1.4H, Gamma Glutamyl Transpeptidase 244H , Aspartate Amino Transf (AST/SGOT) 46H, Alanine Aminotransferase (ALT/SGPT) 18 , Alkaline Phosphatase 154H, Ammonia 55H, Pro-B-Type Natriuretic Peptide 444H, Total Protein 6.7, Albumin 2.7L, Globulin 4.0, Albumin/Globulin Ratio 0.7L, Triglycerides Level 34, Cholesterol Level 56, LDL Cholesterol 47, HDL Cholesterol 16L, Cholesterol/HDL Ratio 3.5, Thyroid Stimulating Hormone (TSH) 4.929H, Cortisol AM Sample [Pending] Height (Feet): 5 Height (Inches): 5.00 Weight (Pounds): 131 Damien Rogers Oct 18, 2017 23:54
[2017-10-19] VITALS: BP 98/63
[2017-10-19 04:00] VITALS: BP 103/66
[2017-10-19] MEDS: HYDROcodone/Acetamin 10/325 tab ORAL PRN ×2 (04:49→10:58)
[2017-10-19 08:00] VITALS: BP 106/65
[2017-10-19] MEDS: Lactulose 20gm/30ml UDC ORAL SCH (08:57)
[2017-10-19] MEDS: Sertraline 50mg tab ORAL SCH (08:58)
[2017-10-19] MEDS: Ascorbic Acid 500mg tab ORAL SCH (08:59)
[2017-10-19] MEDS: Bisacodyl EC 5mg tab ORAL SCH (08:59)
[2017-10-19] MEDS: Docusate 250mg cap ORAL SCH (08:59)
[2017-10-19] MEDS: cefTRIAXone 1 GM in NS 55 ML IVPB SCH (09:05)
[2017-10-19] MEDS: Thiamine 100mg tab ORAL SCH (09:05)
--- NOTE | 2017-10-19 09:49 | General Progress Note ---
Assessment/Plan Problem List: (1) Hiatal hernia ICD Codes: K44.9 - Diaphragmatic hernia without obstruction or gangrene SNOMED: 80117927 (2) Cirrhosis ICD Codes: K74.60 - Unspecified cirrhosis of liver SNOMED: 78426578 (3) Hypotension ICD Codes: I95.9 - Hypotension, unspecified SNOMED: 95581761 (4) Acute alcoholic liver disease ICD Codes: K70.10 - Alcoholic hepatitis without ascites SNOMED: 6268905 Assessment/Plan MRI reviewed fu labs supportive care dc planning per primary team Subjective ROS Limited/Unobtainable: Yes Allergies: Coded Allergies: No Known Allergies (Unverified , 10/15/17) Subjective no event Objective Last 24 Hour Vital Signs Date Time Temp Pulse Resp B/P (MAP) Pulse Ox O2 Delivery O2 Flow Rate FiO2 10/19/17 04:00 71 10/19/17 04:00 97.7 68 18 103/66 97 Room Air 97.7 10/19/17 00:00 98.4 64 17 98/63 96 Room Air 98.4 10/19/17 00:00 65 10/18/17 20:00 98.2 68 19 112/45 99 Room Air 98.2 10/18/17 20:00 61 10/18/17 16:00 98.1 74 20 88/29 98 Room Air 98.1 10/18/17 16:00 60 10/18/17 12:00 72 10/18/17 12:00 98.1 85 20 106/76 98 Room Air 98.1 Intake and Output 10/18/17 10/19/17 19:00 07:00 Intake Total 480 ml Balance 480 ml Intake Oral 480 ml # Voids 1 Height (Feet): 5 Height (Inches): 5.00 Weight (Pounds): 131 General Appearance: alert EENT: PERRL/EOMI Neck: supple Cardiovascular: normal rate Respiratory/Chest: lungs clear Abdomen: normal bowel sounds, non tender, soft Extremities: non-tender VINCENZO BAKER Oct 19, 2017 09:49
--- NOTE | 2017-10-19 11:50 | Infectious Diseases Prog Note ---
Assessment/Plan Assessment/Plan A; Cholelithiasis Cirrhosis GI bleeding GERD Internal hemorrhoids P: discontinue Rocephin agree with discharge Discussed with patient about avoiding Alcohol Subjective ROS Limited/Unobtainable: No Constitutional: Reports: no symptoms Respiratory: Reports: no symptoms Cardiovascular: Reports: no symptoms Gastrointestinal/Abdominal: Reports: no symptoms Genitourinary: Reports: no symptoms Allergies: Coded Allergies: No Known Allergies (Unverified , 10/15/17) Objective Vital Signs Last 24 Hour Vital Signs Date Time Temp Pulse Resp B/P (MAP) Pulse Ox O2 Delivery O2 Flow Rate FiO2 10/19/17 11:31 96.9 10/19/17 08:00 96.9 78 18 106/65 97 Room Air 96.9 10/19/17 04:00 71 10/19/17 04:00 97.7 68 18 103/66 97 Room Air 97.7 10/19/17 00:00 98.4 64 17 98/63 96 Room Air 98.4 10/19/17 00:00 65 10/18/17 20:00 98.2 68 19 112/45 99 Room Air 98.2 10/18/17 20:00 61 10/18/17 16:00 98.1 74 20 88/29 98 Room Air 98.1 10/18/17 16:00 60 10/18/17 12:00 72 10/18/17 12:00 98.1 85 20 106/76 98 Room Air 98.1 Height (Feet): 5 Height (Inches): 5.00 Weight (Pounds): 131 General Appearance: no acute distress HEENT: mucous membranes moist Respiratory/Chest: lungs clear Cardiovascular: normal rate Abdomen: soft, non tender Extremities: no edema Neurologic/Psychiatric: alert, oriented x 3, responsive Current Medications Medications (Trade) Dose Ordered Sig/Zandra Route PRN Reason Start Time Stop Time Status Last Admin Dose Admin Acetaminophen (Tylenol) 325 mg Q4H PRN ORAL Fever/Headache/Mild Pain 10/15/17 19:00 11/14/17 18:59 Acetaminophen/ Hydrocodone Bitart ([place] 10/325) 1 tab Q4H PRN ORAL MOD-SEVERE PAIN 10/17/17 11:15 10/24/17 11:14 10/19/17 10:58 Ascorbic Acid (Vitamin C) 500 mg DAILY ORAL 10/16/17 09:00 11/15/17 08:59 10/19/17 08:59 Bisacodyl (Dulcolax) 5 mg DAILY ORAL 10/16/17 09:00 11/15/17 08:59 10/18/17 09:16 Ceftriaxone Sodium 1 gm/ Sodium Chloride 55 ml @ 110 mls/hr Q24H IVPB 10/16/17 09:00 10/23/17 08:59 10/19/17 09:05 Docusate Sodium (Colace) 250 mg TWICE A DAY ORAL 10/15/17 18:00 11/14/17 17:59 10/19/17 08:59 Lactulose (Cephulac) 20 gm TID ORAL 10/15/17 18:00 11/14/17 17:59 10/19/17 08:57 Midodrine (Pro-Amatine) 5 mg THREE TIMES A DAY ORAL 10/18/17 11:00 11/17/17 10:59 10/19/17 08:58 Multivitamins (Multivitamins) 1 tab DAILY ORAL 10/16/17 09:00 11/15/17 08:59 10/19/17 08:59 Pantoprazole (Protonix) 40 mg BIAC ORAL 10/16/17 11:30 11/15/17 11:29 10/19/17 08:57 Potassium Chloride (K-Dur) 40 meq DAILY ORAL 10/18/17 11:00 11/17/17 10:59 10/19/17 08:59 Sertraline HCl (Zoloft) 25 mg DAILY ORAL 10/16/17 09:00 11/15/17 08:59 10/19/17 08:58 Thiamine HCl (Vitamin B1) 100 mg DAILY ORAL 10/16/17 09:00 11/15/17 08:59 10/19/17 09:05 THERESE CAZARES Oct 19, 2017 11:50
[2017-10-19] MEDS ORDERED: NS 275ml ONE (11:59)
[2017-10-19] MEDS ORDERED: NS 500ML ONE (11:59)
[2017-10-19 12:00] VITALS: BP 96/64
--- NOTE | 2017-10-19 12:19 | Nephrology Progress Note ---
Assessment/Plan Problem List: (1) Electrolyte abnormality (2) Hypotension (3) Acute alcoholic liver disease Assessment Hypotension alcohol abuse with alcoholic hepatitis upper gastrointestinal bleeding, Thrombocytopenia, likely secondary to history of alcohol abuse, potential cirrhosis and potential splenomegaly. Anemia due to gastrointestinal bleed. 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 -Cirrhosis of the liver. Plan cortisol level pending add Midodrine, increase dose to 10mg TID mag and K supplement as needed per orders Objective Objective Last 24 Hour Vital Signs Date Time Temp Pulse Resp B/P (MAP) Pulse Ox O2 Delivery O2 Flow Rate FiO2 10/19/17 11:31 96.9 10/19/17 08:00 96.9 78 18 106/65 97 Room Air 96.9 10/19/17 04:00 71 10/19/17 04:00 97.7 68 18 103/66 97 Room Air 97.7 10/19/17 00:00 98.4 64 17 98/63 96 Room Air 98.4 10/19/17 00:00 65 10/18/17 20:00 98.2 68 19 112/45 99 Room Air 98.2 10/18/17 20:00 61 10/18/17 16:00 98.1 74 20 88/29 98 Room Air 98.1 10/18/17 16:00 60 Intake and Output 10/18/17 10/19/17 19:00 07:00 Intake Total 480 ml Balance 480 ml Intake Oral 480 ml # Voids 1 Height (Feet): 5 Height (Inches): 5.00 Weight (Pounds): 131 Objective no change VEE STANLEY 4, 2018 12:19
[2017-10-19] MEDS ORDERED: Midodrine 10mg tab ORAL SCH (13:00)
--- NOTE | 2017-10-19 13:34 | General Surgery Progress Note ---
General Surgery-Progress Note Subjective Additional Comments no acute events. comfortable. Objective Last 24 Hour Vital Signs Date Time Temp Pulse Resp B/P (MAP) Pulse Ox O2 Delivery O2 Flow Rate FiO2 10/19/17 12:00 71 10/19/17 12:00 96.8 74 18 96/64 100 Room Air 96.8 10/19/17 11:31 96.9 10/19/17 08:00 96.9 78 18 106/65 97 Room Air 96.9 10/19/17 04:00 71 10/19/17 04:00 97.7 68 18 103/66 97 Room Air 97.7 10/19/17 00:00 98.4 64 17 98/63 96 Room Air 98.4 10/19/17 00:00 65 10/18/17 20:00 98.2 68 19 112/45 99 Room Air 98.2 10/18/17 20:00 61 10/18/17 16:00 98.1 74 20 88/29 98 Room Air 98.1 10/18/17 16:00 60 I&O Intake and Output 10/18/17 10/19/17 19:00 07:00 Intake Total 480 ml Balance 480 ml Intake Oral 480 ml # Voids 1 Drains: none Cardiovascular: RSR Respiratory: clear Abdomen: soft, flat, non-tender, present bowel sounds Extremities: no cyanosis Plan Problems: (1) Rectal bleeding Assessment & Plan: Had Colonoscopy and EGD found to have hemorrhoids that were friable. no lesions seen or significant blood in colon. upper GI with GERD ulcers and hernia. Ultrasound with cholelithiasis and pericholecystic fluid. LFT's mild elevation. T bili elevated D bili elevated. MRCP without biliary ductal obstruction. chronic liver disease noted. lab abnormalities due to liver disease will monitor for now. can consider hemorrhoidectomy as outpatient. if rebleeding significant while in hospital can consider but unlikely. transfuse prn. ppi. medical management of gerd. no acute surgical intervention necessary. patient currently not bleeding and stable. will monitor and follow with recs. thank you for this consultation. Jc Arrington Oct 19, 2017 13:34
--- NOTE | 2017-10-19 23:50 | General Progress Note ---
Assessment/Plan Assessment/Plan 1. Pancytopenia, likely secondary to history of alcohol abuse, potential cirrhosis and potential splenomegaly. --> Obtain ultrasound of the abdomen, human immunodeficiency virus, hepatitis. --> Abd us results: Cholelithiasis. Gallbladder wall thickening and pericholecystic fluid is concerning for acute cholecystitis. --> S/P Abd MRI: Evidence of chronic liver disease/cirrhosis with stigmata of portal hypertension including 16 cm spleen, trace ascites and recanalized umbilical vein. Suspected tiny gallstone. Thickening of the gallbladder wall. Hiatal hernia --> HIV and Hep panel were both negative. --> Transfuse if hgb <7 or plt <20 --> Levels continue to improved. Trend cbc daily. 2. Anemia due to gastrointestinal bleed. --> GI evaluation by Dr. Cunningham. --> ++Occult blood --> monitor closely. --> Transfuse if hemoglobin <7 3. Macrocytosis, potentially secondary to alcohol abuse. --> Continue to closely monitor. 4. 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 --> Recommend cessation 5. Cirrhosis of the liver. 6. Gastrointestinal bleed. --> Evaluation by GI Service. EGD and colonoscopy as per GI Service. 7. Alcoholism. Again, recommend the patient to stop drinking. Subjective Date patient seen: Oct 19, 2017 Constitutional: Denies: no symptoms, chills, diaphoresis, fever, malaise, weakness, other HEENT: Denies: no symptoms, eye pain, blurred vision, tearing, double vision, ear pain, ear discharge, nose pain, nose congestion, throat pain, throat swelling, mouth pain, mouth swelling, other Cardiovascular: Denies: no symptoms, chest pain, edema, irregular heart rate, lightheadedness, palpitations, syncope, other Respiratory: Denies: no symptoms, cough, orthopnea, shortness of breath, SOB with excertion, SOB at rest, sputum, stridor, wheezing, other Gastrointestinal/Abdominal: Denies: no symptoms, abdomen distended, abdominal pain, black stools, tarry stools, blood in stool, constipated, diarrhea, difficulty swallowing, nausea, poor appetite, poor fluid intake, rectal bleeding , vomiting, other Genitourinary: Denies: no symptoms, burning, discharge, frequency, flank pain, hematuria, incontinence, pain, urgency, other Neurologic/Psychiatric: Denies: no symptoms, anxiety, depressed, emotional problems, headache, numbness, paresthesia, pre-existing deficit, seizure, tingling, tremors, weakness, other Hematologic/Lymphatic: Reports: anemia Allergies: Coded Allergies: No Known Allergies (Unverified , 10/15/17) Subjective No acute distress. No fever. Pending discharge. Objective Last 24 Hour Vital Signs Date Time Temp Pulse Resp B/P (MAP) Pulse Ox O2 Delivery O2 Flow Rate FiO2 10/19/17 12:00 71 10/19/17 12:00 96.8 74 18 96/64 100 Room Air 96.8 10/19/17 11:31 96.9 10/19/17 08:00 96.9 78 18 106/65 97 Room Air 96.9 10/19/17 04:00 71 10/19/17 04:00 97.7 68 18 103/66 97 Room Air 97.7 10/19/17 00:00 98.4 64 17 98/63 96 Room Air 98.4 10/19/17 00:00 65 Intake and Output 10/18/17 10/19/17 19:00 07:00 Intake Total 480 ml Balance 480 ml Intake Oral 480 ml # Voids 1 Height (Feet): 5 Height (Inches): 5.00 Weight (Pounds): 131 General Appearance: no apparent distress Respiratory/Chest: decreased breath sounds Damien Rogers Oct 19, 2017 23:50
--- NOTE | 2017-10-22 12:56 | Discharge Summary ---
Discharge Summary Hospital Course Date of Admission Oct 15, 2017 at 08:45 Date of Discharge Oct 19, 2017 at 12:00 Admitting Diagnosis GI BLEED HPI Perri Mendoza is a 42 year old female who was admitted on Oct 15, 2017 at 08:45 for Gastro Intestinal Bleed Hospital Course dc summary #[id number] Discharge Medications Continued Medications: Acetaminophen* (Acetaminophen 325MG Tablet*) 325 Mg Tablet 325 MG ORAL Q4H, TAB Acetaminophen/Hydrocodone ([place] 7.5-325 Tablet) 1 Each Tablet 1 TAB ORAL Q4H PRN for For Pain, #30 TAB 0 Refills Ascorbic Acid* (Ascorbic Acid*) 500 Mg Tablet 500 MG ORAL DAILY, TAB Bisacodyl* (Dulcolax*) 5 Mg Tablet.dr 5 MG ORAL DAILY, #10 TAB 0 Refills Docusate Sodium* (Docusate Sodium*) 250 Mg Capsule 250 MG ORAL TWICE A DAY, CAP Ferrous Sulfate* (Ferrous Sulfate*) 325 Mg Tablet 325 MG ORAL DAILY, #30 TAB 0 Refills Folic Acid* (Folic Acid*) 1 Mg Tablet 1 MG ORAL DAILY, TAB Hydrocodone Bit/Acetaminophen 10-325* ([place] 10-325*) 1 Each Tablet 1 TAB ORAL Q4H PRN for For Pain, TAB 0 Refills PRN PAIN Hydrocortisone (Preparation H) 26 Gm Cream..g. 26 GM TP, GM Lactulose (Lactulose*) 20 Gm/30 Ml Solution 30 ML ORAL, ML 0 Refills Lidocaine HCl (Lidocaine HCl) 40 Mg/1 Ml Solution 1 APPLIC TOPIC for 30 Days, APPLIC 0 Refills Multivitamins* (Multivitamins*) 1 Each Tablet 1 TAB ORAL DAILY, TAB 0 Refills Sertraline Hcl* (Sertraline Hcl*) 25 Mg Tablet 25 MG ORAL DAILY, TAB Thiamine Hcl* (Vitamin B-1*) 100 Mg Tablet 100 MG ORAL DAILY, #30 TAB 0 Refills Discharge Condition Upon Discharge: stable Discharge Disposition Patient was discharged to SNF/Subacute Facility(03) Discharge Diagnoses: Discharge Instructions Discharge Instructions Special Instructions I have been assigned to complete a D/C Summary on this account. I was not involved in the patient management Cadence Gabriel NP ([place]) Oct 22, 2017 12:56
--- NOTE | 2017-10-23 04:15 | Discharge Summary 2 SIG ---
DATE OF ADMISSION: 10/15/2017 DATE OF DISCHARGE: 10/19/2017 REASON FOR ADMISSION: 42-year-old female with history of alcohol abuse came from snf facility, where she was on the rehabilitation for severe hip bursitis, with chief complaint of rectal bleeding. The patient reported intermittent off and on rectal bleeding which became more severe in the last two days. The patient noted large amount of bright red blood per rectum with bowel movement. She denied any other complaints. Vital signs were stable, except low blood pressure, however, the patient stated that she usually had low blood pressure. The patient noted to have anemia with hemoglobin - 9.1, hematocrit -28.0. Potassium - 3.5. The patient admitted with diagnoses of rectal bleeding and anemia. HOSPITAL COURSE: The patient admitted. GI consult was requested along with Nephrology, Surgery, ID, and Hematology consult. GI had seen and evaluated the patient. Stool for OB was positive. Hemoglobin and hematocrit were dropping. The patient required 1 unit of packed red blood cells transfusion for hemoglobin -7.7 and hematocrit -24.5. The patient subsequently had undergone EGD and colonoscopy on 10/16/2017, with finding of 9-cm hiatal hernia, severe GERD with reflux related to ulcer, mild internal hemorrhoids, normal terminal ileum, no blood was seen in the upper or lower gastrointestinal tract, no lesions were seen. The patient initially kept n.p.o. with IV fluids. After procedure, the patient was started on diet. Proton pump inhibitor added to medication regimen. Hemoglobin and hematocrit were closely monitored. Diet advanced as tolerated. Antiemetics were on board as needed. Diet provided with high fiber. Bowel regimen instituted. The patient was able to tolerate diet. Hemoglobin and hematocrit remained at the baseline. Prior to discharge, hemoglobin -9.0, hematocrit -28. The patient had initially on admission abdominal ultrasound which revealed cholelithiasis, gallbladder wall thickening, and pericholecystic fluid with concern for acute cholecystitis, but negative for dilated ducts. Subsequently, the patient had undergone MRI of the abdomen which revealed no evidence of biliary ductal dilatation or obstruction, but showed evidence of chronic liver disease/cirrhosis with stigmata of portal hypertension including 16-cm spleen, trace ascites, and recanalized umbilical vein. Suspected tiny gallstones. Thickening of the gallbladder wall. Hiatal hernia. GI cleared the patient for discharge after reviewing of the MRI. Surgeon closely followed. Per surgeon, ultrasound with cholelithiasis and pericholecystic fluid. LFT with mild elevation, elevated total bilirubin and direct bilirubin. MRCP showed no biliary ductal obstruction, but revealed chronic liver disease. Surgeon recommended monitoring for now, and consider hemorrhoidectomy as an outpatient if significant bleeding reoccurred. Continue medical management of GERD. No acute surgical intervention was necessary at this time. The patient was not bleeding and was stable. Surgeon cleared the patient for discharge. Initially on admission, the patient had urinalysis with evidence of possible UTI , The patient was on empiric antibiotics for possible UTI, however, urine showed mixed gram-positive organisms. Rocephin was stopped, and ID agreed with discharge plan. [employer] Officer followed the patient. Anemia workup revealed anemia of chronic disease. The patient also had anemia due to the gastrointestinal bleeding. He recommended in future, transfuse if hemoglobin below 7 or patient symptomatic. The patient noted to have pancytopenia likely secondary to history of alcohol abuse and chronic liver disease. HIV test was negative. Hepatitis panel was negative. Closely monitor counts at snf facility. Consulting Engineer had seen the patient for electrolyte abnormalities. Potassium and magnesium were replaced. Midodrine added to existing medication regimen due to consistent hypotension. Blood pressure -106/65 prior to discharge. The patient was counseled on abstinence from alcohol. The patient was stable for discharge. FINAL DIAGNOSES: 1. Rectal bleeding. 2. Anemia secondary to GI bleeding. 3. Hypertension. 4. Acute alcoholic liver disease. 5. Cirrhosis. 6. Status post on 10/16/2017, EGD and colonoscopy with findings of hiatal hernia, severe GERD with reflux related to ulcer. 7. Mild internal hemorrhoids. 8. Cholelithiasis. 9. Electrolyte abnormalities (hypokalemia, hypomagnesemia). 10. Thrombocytopenia. 11. Pancytopenia. DISCHARGE MEDICATIONS: See medication reconciliation list. DISCHARGE INSTRUCTIONS: The patient discharged to snf facility. Follow up with medical doctor at the facility. Closely monitor for any signs of bleeding. If significant bleeding recurred, may consider outpatient hemorrhoidectomy as per surgery recommendation. Ernie Giron M.D. I have been assigned to dictate discharge summary on this account and I was not involved in the patient's management. Cadence GuevaraRani bustillos DR: Layne JOB#: [id number] CC: [place]
== END 2017-10-19 12:00 | DRG 253 ==
LOC: EDBD 05:34 → EMR 06:22 → 2E 08:45 → EDBEDREQ 10:56
PROC: 30233N1 Transfusion of Nonautologous Red Blood Cells into Peripheral Vein, Percutaneous Approach (ICD-10-PCS; 2017-10-16)
PROC: 0DJ08ZZ Inspection of Upper Intestinal Tract, Via Natural or Artificial Opening Endoscopic (ICD-10-PCS; principal; 2017-10-16 10:22)
PROC: 0DJD8ZZ Inspection of Lower Intestinal Tract, Via Natural or Artificial Opening Endoscopic (ICD-10-PCS; 2017-10-16 10:22)
DX: K92.2 Gastrointestinal hemorrhage, unspecified (principal); D61.818 Other pancytopenia; D68.8 Other specified coagulation defects; D69.59 Other secondary thrombocytopenia; I95.9 Hypotension, unspecified; D69.6 Thrombocytopenia, unspecified; M32.9 Systemic lupus erythematosus, unspecified; K64.8 Other hemorrhoids; E87.6 Hypokalemia; K21.9 Gastro-esophageal reflux disease without esophagitis; K44.9 Diaphragmatic hernia without obstruction or gangrene; M70.72 Other bursitis of hip, left hip; Z88.1 Allergy status to other antibiotic agents; F10.20 Alcohol dependence, uncomplicated; D50.0 Iron deficiency anemia secondary to blood loss (chronic); D75.89 Other specified diseases of blood and blood-forming organs; K70.10 Alcoholic hepatitis without ascites; K70.30 Alcoholic cirrhosis of liver without ascites; K80.20 Calculus of gallbladder without cholecystitis without obstruction; D63.8 Anemia in other chronic diseases classified elsewhere; I10 Essential (primary) hypertension; E83.42 Hypomagnesemia
CPT/HCPCS: 36415; 74181; 76700; 80048; 80053; 80061; 81001; 81025; 82140; 82248; 82270; 82533; 82728; 82746; 82977; 83036; 83540; 83550; 83615; 83735; 83880; 83921; 84100; 84238; 84300; 84443; 84550; 85007; 85025; 85044; 85384; 85610; 85730; 86140; 86703; 86705; 86709; 86803; 86850; 86900; 86901; 86920; 87081; 87086; 87340; 93005; 94003; 94150; 99285; J2250; J8499